=== PATIENT | female | born 1970 | race Caucasian/White ===

== ENCOUNTER → 2016-09-09 | Outpatient (CLI) | payer OTHER ==
--- NOTE | 2016-09-09 08:46 | MM ---
Reason for exam: additional evaluation requested from abnormal screening. Last mammogram was performed 1 month ago. Physical Findings: Nurse did not find any significant physical abnormalities on exam. MG Work Up Mamm w CAD LT Spot compression CC, spot compression MLO, and ML view(s) were taken of the left breast. Prior study comparison: August 06, 2016, bilateral MG screening mammo w CAD. There are scattered fibroglandular densities. Asymmetric breast tissue persists inferior left breast. No significant new findings when compared with previous films. These results were verbally communicated with the patient and result sheet given to the patient on 09/09/16. ASSESSMENT: Incomplete: need additional imaging evaluation, BI-RAD 0 RECOMMENDATION: Ultrasound of the left breast.
--- NOTE | 2016-09-09 08:48 | USB ---
Reason for exam: additional evaluation requested from abnormal screening. US Breast Workup Limited LT Left breast ultrasound demonstrates a 0.9 x 0.4 x 0.8cm oval, cystic lesion at 4 o'clock. These results were verbally communicated with the patient and result sheet given to the patient on 09/09/16. ASSESSMENT: Probably benign, BI-RAD 3 RECOMMENDATION: Ultrasound of the left breast in 6 months.
== END | disposition home or self-care (01) ==
LOC: RADMAMWWP 07:38
PROVIDERS: ATTEND Family Medicine
DX: R92.2 Inconclusive mammogram (principal)
CPT/HCPCS: 77051; 76642; G0206

== ENCOUNTER → 2017-10-14 | Outpatient (CLI) | payer OTHER ==
--- NOTE | 2017-10-14 11:09 | MM ---
Reason for exam: additional evaluation requested from prior study. Last mammogram was performed 1 year and 1 month ago. Physical Findings: Nurse Summary: 1cm nodule in the left breast at 1 o'clock (nurse veronika). MG Diagnostic Mammo w CAD DIANA Bilateral CC and MLO view(s) were taken. Prior study comparison: September 09, 2016, left breast MG work up mamm w CAD LT. August 06, 2016, bilateral MG screening mammo w CAD. The breast tissue is heterogeneously dense. This may lower the sensitivity of mammography. No suspicious abnormality in the right breast. The previously seen focal asymmetry of the lower central left breast at middle depth is unchanged from the prior of 08/06/16. These results were verbally communicated with the patient and result sheet given to the patient on 10/14/17. ASSESSMENT: Probably benign, BI-RAD 3 RECOMMENDATION: Follow-up diagnostic mammogram of both breasts in 1 year.
--- NOTE | 2017-10-14 11:11 | USB ---
Reason for exam: additional evaluation requested from prior study. US Breast LT Left breast ultrasound includes all four quadrants, the retroareolar region and axilla. Finding demonstrates a 8 x 4 x 8mm cystic lesion with debris at 4 o'clock unchanged from the prior of 09/09/16 and a 24 x 11 x 17mm possible lymph node at the axilla tail this can be reassessed on the recommended follow up. These results were verbally communicated with the patient and result sheet given to the patient on 10/14/17. ASSESSMENT: Probably benign, BI-RAD 3 RECOMMENDATION: Ultrasound of the left breast in 1 year.
== END | disposition home or self-care (01) ==
LOC: RADMAMWWP 09:47
PROVIDERS: ATTEND Family Medicine
DX: R92.8 Other abnormal and inconclusive findings on diagnostic imaging of breast (principal)
CPT/HCPCS: 77066

== ENCOUNTER → 2019-06-01 | Outpatient (CLI) | payer OTHER ==
--- NOTE | 2019-06-02 09:05 | MM ---
Reason for exam: additional evaluation requested from prior study. Last mammogram was performed 1 year and 8 months ago. Physical Findings: Nurse did not find any significant physical abnormalities on exam. MG Diagnostic Mammo w CAD DIANA Bilateral CC and MLO view(s) were taken. ML, spot compression CC, and spot compression MLO view(s) were taken of the right breast. Prior study comparison: October 14, 2017, bilateral MG diagnostic mammo w CAD DIANA. September 09, 2016, left breast MG work up mamm w CAD LT. The breast tissue is heterogeneously dense. This may lower the sensitivity of mammography. Asymmetric breast tissue upper ouer quadrant right breast. This finding is changed when compared with previous exams. These results were verbally communicated with the patient and result sheet given to the patient on 06/01/19. ASSESSMENT: Incomplete: need additional imaging evaluation, BI-RAD 0 RECOMMENDATION: Ultrasound of the right breast.
--- NOTE | 2019-06-02 09:09 | USB ---
Reason for exam: additional evaluation requested from prior study. US Breast Limited BILAT Right limited breast ultrasound including focal area of concern, retroareolar and axilla demonstrates a 5 x 3 x 5mm oval, hypoechoic lesion at 10 o'clock, a 7mm and 9mm oval lymph node at the axilla tail. Left complete breast ultrasound includes all four quadrants, the retroareolar region and axilla. Finding demonstrates a 4 x 2 x 4mm oval, cystic lesion at 2 o'clock, a 8 x 6 x 8mm oval, hypoechoic lesion at 4 o'clock for which a biopsy is recommended, a 7mm, 8mm and 8mm lymph nodes at the axilla tail. These results were verbally communicated with the patient and result sheet given to the patient on 06/02/19. ASSESSMENT: Probably benign, BI-RAD 3 RECOMMENDATION: Ultrasound core biopsy of the left breast. Called Dr. Ruiz with mammographic findings and has scheduled an appointment for the patient for 07/28/19 at 10:[address] Montelongo. Biopsy scheduled for 06/27/19 at 12:20. PRELIMINARY REPORT CALLED AND FAXED TO DR. MONTELONGO ON 06/02/19. Ultrasound of the right breast in 6 months.
== END | disposition home or self-care (01) ==
LOC: RADMAMWWP 13:26
PROVIDERS: ATTEND Family Medicine
DX: R92.8 Other abnormal and inconclusive findings on diagnostic imaging of breast (principal)
CPT/HCPCS: 77066

== ENCOUNTER → 2019-06-27 | Day surgery (SDC) | payer OTHER ==
[2019-06-27 11:52] VITALS: RESP 16; BMI 37.8
[2019-06-27 13:19] VITALS: TEMP 98.5
[2019-06-27 13:26] VITALS: BP 161/94; PULSE 67
--- NOTE | 2019-06-27 15:43 | USB ---
EXAMINATION TYPE: US biopsy breast VAD LT, Postprocedure diagnostic mammo LT wo CAD DATE OF EXAM: 06/27/2019 CLINICAL HISTORY: 49-year-old female R92.8 ABNORMAL MAMMOGRAM. TECHNIQUE: Ultrasound guided core biopsy of the left breast. COMPARISON: 06/01/2019 FINDINGS: The procedure of ultrasound guided core biopsy was explained to the patient. Benefits, alternatives, and risks were discussed. An informed consent was then obtained. The patient was placed in supine positioning for imaging and for the procedure. The overlying skin was prepped and draped in usual sterile fashion. Lidocaine was used as anesthetic into the skin and subcutaneous tissue up to area of concern in the 4:00 position left breast. Under ultrasound guidance, a 13-gauge vacuum-assisted mammotome Elite biopsy gun device was used to obtain 6 core samples. Following this, a ribbon clip was left in lesion. The patient tolerated the procedure well without any immediate complication. The patient was kept in the radiology department for short stay after the procedure and then discharged home in stable condition. Postprocedure mammogram shows the biopsy clip at the 6:00 position which appears to correspond to a nodular asymmetry on the left MLO view of 06/01/2019. IMPRESSION: Successful, uncomplicated ultrasound guided core biopsy of circumscribed hypoechoic lesion in the 6:00 left breast. Full pathology results to follow. Pathology Results: Benign LEFT BREAST AT 4:00 POSITION, NEEDLE CORE BIOPSIES: Fibroadenoma. Recommendation Follow up ultrasound of the left breast in 6 months. HALLIE
== END | disposition home or self-care (01) ==
LOC: RADUSWWP 11:21
PROVIDERS: ATTEND Surgery
DX: D24.2 Benign neoplasm of left breast (principal)
CPT/HCPCS: 88305; 77065; 19083; A4648; J2001

== ENCOUNTER → 2019-10-05 | Outpatient (CLI) | payer OTHER ==
[2019-10-05 13:33] VITALS: BP 87/60; PULSE 104; TEMP 98.1; BMI 38.8
--- NOTE | 2019-10-05 14:28 | P.HPBAR ---
Bariatric H&P - History & Physicial H&P Date: 10/05/19 History & Physicial: Visit/CC: bariatric consultation Patient initial contact: Initial weight: 101.106 kg Initial weight in pounds: 222.90 Height: 5 ft 3.5 in Initial BMI: 38.8 Last weight: Current weight: 101.106 kg Current weight in pounds: 222.90 Current BMI: 38.8 [place] body weight (based on NIH guidelines): 53.297 kg Excess body weight loss: 0.0% The patient is a 49 year-old F who presents for Bariatric Assessment. She is on Xarelto. She has history blood clot in her legs. She sees Dr. Quinn who states she has to be on blood thinners for Factor V. 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 She is looking into the gastric bypass. She reports dizziness yesterday. She was on Keto diet 1 year ago and lost 40 pounds. She has history of hypotension. She has regained all of her weight back. She has history strokes systolic of 220s. She takes hypertension. She is type II diabetic. She was blood sugars 400s. Her Hgb A1c 8.6. No problems with diarrhea. No family history of stomach or esophageal cancer. Osteoarthritis of the back, hips, knees, and ankles reviewed. PLAN: 1. She was given chips and water with blood pressure improved. 2. She does not see a heart doctor. 3. [facility] started and reviewed. 4. Past Medical History Past Medical History: Diabetes Mellitus, GERD/Reflux, Hypertension Additional Past Medical History / Comment(s): blood clot secondary to spinal fusion right leg dx 2016, Factor V dx 2016. Type 2 DM. History of Any Multi-Drug Resistant Organisms: None Reported Past Surgical History: Section Additional Past Surgical History / Comment(s): spinal fusion 2016. , x4, Past Anesthesia/Blood Transfusion Reactions: No Reported Reaction Additional Past Anesthesia/Blood Transfusion Reaction / Comm: Pt. states had prior tooth pulled with local lidocaine anesthetic which did not numb prior to procedure (pt states she ended up in ICU with 2 plasma transfusions after having this tooth pulled). Smoking Status: Never smoker Surgical - Exam Vital Signs Temp Pulse BP 98.1 F 104 H 87/60 10/05/19 13:26 10/05/19 13:26 10/05/19 13:26 Bariatric Checklist Checklist: Plan: Checklist: EGD: 1. Hiatal hernia: 2. H. Pylori: HgbA1c: Vitamin D: Smoking: Never smoker Primary care physician referral: kevin drake Psychiatry clearance: Cardiology clearance: Sleep study: Diet journal: VTE risk score: VTE risk level: Rehab needs at discharge:
[2019-10-05 15:35] LABS: HCT 41.6 % (34.0-46.0); HGB 13.5 gm/dL (11.4-16.0); MCH 29.5 pg (25.0-35.0); MCHC 32.5 g/dL (31.0-37.0); MCV 90.6 fL (80.0-100.0); Mean Platelet Volume 7.7; Platelet Count 248 k/uL (150-450); RBC 4.59 m/uL (3.80-5.40); RDW 12.5 % (11.5-15.5); WBC 7.7 k/uL (3.8-10.6)
[2019-10-05 15:42] LABS: INR 1.2 (<1.2); Partial Thromboplastin Time 29.6 sec (22.0-30.0); Prothrombin Time 11.7 sec (9.0-12.0)
[2019-10-06 01:23] LABS: Hemoglobin A1C 7.4 % (4.0-6.0)
[2019-10-06 01:30] LABS: % Iron Saturation 29.19 (12.00-45.00); African American GFR (CKD) 62.3 (60.0-200.0); Albumin 4.4 g/dL (3.80-4.90); Albumin/Globulin Ratio 1.83 (1.60-3.17); Anion Gap 9.3 mmol/L (4.00-12.00); BUN/Creat Ratio 26.67 Ratio (12.00-20.00); Calcium 9.4 mg/dL (8.7-10.3); Carbon Dioxide 26.7 mmol/L (21.6-31.8); Chol/HDL Ratio 4.97; Globulin 2.4 g/dL (1.6-3.3); Non-African American GFR(CKD) 53.8 (60.0-200.0); Phosphorus 3.1 mg/dL (2.4-5.1); Total Bilirubin 0.4 mg/dL (0.3-1.2); Total Protein 6.8 g/dL (6.2-8.2)
[2019-10-06 02:07] LABS: Folate, Serum 13.6 ng/mL
[2019-10-06 14:02] LABS: Zinc, Serum 68 ug/dL (60-130)
[2019-10-07 07:09] LABS: Vitamin A 70 ug/dL (38-106)
[2019-10-07 12:51] LABS: Vit B1(Thiamine) 60 ug/L (38-122)
[2019-10-07 22:29] LABS: Selenium 109 mcg/L (63-160)
== END | disposition home or self-care (01) ==
LOC: BARWHC3 12:53
PROVIDERS: ATTEND Surgery Plastic and Reconstructive Surgery
DX: R42 Dizziness and giddiness (principal); E11.9 Type 2 diabetes mellitus without complications; M16.0 Bilateral primary osteoarthritis of hip; M17.0 Bilateral primary osteoarthritis of knee; M19.072 Primary osteoarthritis, left ankle and foot; M19.071 Primary osteoarthritis, right ankle and foot; I10 Essential (primary) hypertension; Z86.2 Personal history of diseases of the blood and blood-forming organs and certain disorders involving the immune mechanism; Z87.09 Personal history of other diseases of the respiratory system; Z86.73 Personal history of transient ischemic attack (TIA), and cerebral infarction without residual deficits
CPT/HCPCS: 84255; 84134; 84425; 80061; 80053; 82607; 82525; 82746; 83540; 83550; 83735; 84100; 84443; 84590; 84630; 85027; 85610; 85730; 82306; 83970; 83036; 93005; 36415; G0463; 99211

== ENCOUNTER 2019-10-31 06:57 | Day surgery (SDC) | payer OTHER ==
[2019-10-27 15:15] VITALS: BMI 38.7
--- NOTE | 2019-10-30 20:01 | P.GSHP ---
History of Present Illness H&P Date: 10/31/19 CHIEF COMPLAINT: GERD HISTORY OF PRESENT ILLNESS: The patient is a 49-year-old female who presents reports gastroesophageal reflux disease. Upper endoscopy was offered for further evaluation and management. PAST MEDICAL HISTORY: Please see list. PAST SURGICAL HISTORY: Please see list. MEDICATIONS: Please see list. ALLERGIES: Please see list. SOCIAL HISTORY: No illicit drug use FAMILY HISTORY: No reports of Crohn disease or ulcerative colitis. REVIEW OF ORGAN SYSTEMS: CONSTITUTIONAL: No reports of fevers or chills. GI: Denies any blood in stools or constipation. PHYSICAL EXAM: VITAL SIGNS: Stable GENERAL: Well-developed and pleasant in no acute distress. HEENT: No scleral icterus. Extraocular movements grossly intact. Moist buccal mucosa. NECK: Supple without lymphadenopathy. CHEST: Unlabored respirations. Equal bilateral excursions. CARDIOVASCULAR: Regular rate and rhythm. Distal 2+ pulses. ABDOMEN: Soft, nondistended. MUSCULOSKELETAL: No clubbing, cyanosis, or edema. ASSESSMENT: 1. Gastroesophageal reflux disease PLAN: 1. Recommend proceeding with an upper endoscopy Past Medical History Past Medical History: CVA/TIA, Diabetes Mellitus, Deep Vein Thrombosis (DVT), GERD/Reflux, Hypertension Additional Past Medical History / Comment(s): blood clot secondary to spinal fusion right leg dx 2016, Factor V dx 2016. Type 2 DM. History of Any Multi-Drug Resistant Organisms: None Reported Past Surgical History: Section Additional Past Surgical History / Comment(s): spinal fusion 2016. , x4, Past Anesthesia/Blood Transfusion Reactions: No Reported Reaction Additional Past Anesthesia/Blood Transfusion Reaction / Comment(s): Pt. states h ad prior tooth pulled with local lidocaine anesthetic which did not numb prior to procedure (pt states she ended up in ICU with 2 plasma transfusions after having this tooth pulled). Smoking Status: Never smoker - Past Family History Mother Family Medical History: No Reported History Medications and Allergies Home Medications Medication Instructions Recorded Confirmed Type Biotin 10,000 mcg PO DAILY 06/10/19 10/27/19 History Lisinopril 40 mg PO DAILY 06/10/19 10/27/19 History Rivaroxaban [Xarelto] 20 mg PO DAILY 06/10/19 10/27/19 History Glimepiride [Amaryl] 4 mg PO BID 10/05/19 10/27/19 History metFORMIN HCL [Glucophage] 1,000 mg PO BID 10/05/19 10/27/19 History Cholecalciferol [Vitamin D3 (25 5,000 unit PO DAILY 10/27/19 10/27/19 History Mcg = 1000 Iu)] Allergies Allergy/AdvReac Type Severity Reaction Status Date / Time No Known Allergies Allergy Verified 10/27/19 14:43
[~2019-10-31 06:57] MED LIST: LACTATED RINGERS 1,000 ML IV SCH; LIDOCAINE 1% 20 ML VIAL (10MG/ML) FOR IV START INTRADERMA PRN
[2019-10-31 07:15] VITALS: TEMP 98
[2019-10-31] MEDS ORDERED: LACTATED RINGERS 1,000 ML IV ONE ×2 (07:22)
[2019-10-31 07:25] LABS: Glucose,Whole Blood 154 mg/dL (75-99)
[2019-10-31] MEDS ORDERED: LIDOCAINE 1% INJ 10MG/ML (20 ML MDV) ONE (07:30)
[2019-10-31] MEDS ORDERED: PROPOFOL 10 MG/ML 20 ML VIAL IV ONE (07:30)
--- NOTE | 2019-10-31 08:05 | P.PCN ---
Date of Procedure: 10/31/19 Description of Procedure: PREOPERATIVE DIAGNOSIS: Gastroesophageal reflux disease. Morbid obesity. POSTOPERATIVE DIAGNOSIS: Morbid obesity. Gastritis. Gastroesophageal reflux disease. Diaphragmatic hiatal hernia with erosive esophagitis Duodenitis OPERATION: Esophagogastroduodenoscopy with biopsies along antrum and duodenum SURGEON: Fransisca York MD ANESTHESIA: MAC. INDICATIONS: The patient is a 48-year-old female who presents with a history of reflux disease. Benefits and risks of the procedure were described. Informed consent was obtained. DESCRIPTION: The patient was brought into the endoscopy suite and laid in the left lateral decubitus position. An Olympus gastroscope was passed along the posterior oropharynx down to the distal esophagus where the squamocolumnar junction was encountered at 35 cm from the incisors. The stomach was entered and no bile reflux was found. Additional findings are listed below. Biopsies with cold forceps were obtained of the antrum. The first through third portion of the duodenum was examined and remarkable for duodenitis. Retroflexion of the scope confirmed Hill grade 3 lower esophageal valve. The squamocolumnar junction demonstrated LA grade C erosive esophagitis. The stomach was desufflated. The patient tolerated the procedure well. FINDINGS: Squamocolumnar junction 35 cm from the incisors. Diaphragmatic hiatus at 38 cm. Hiatal hernia, 3 cm Hill grade 3 lower esophageal valve. LA grade C erosive esophagitis. Active mild duodenitis. Chronic gastritis RECOMMENDATIONS: Upper endoscopy as needed. Plan - Discharge Summary Discharge Rx Participant: No New Discharge Prescriptions: No Action Rivaroxaban [Xarelto] 20 mg PO DAILY RX: Lisinopril 40 mg PO DAILY RX: Biotin 10,000 mcg PO DAILY RX: metFORMIN HCL [Glucophage] 1,000 mg PO BID RX: Glimepiride [Amaryl] 4 mg PO BID Cholecalciferol [Vitamin D3 (25 Mcg = 1000 Iu)] 5,000 unit PO DAILY Discharge Medication List RX: Biotin 10,000 mcg PO DAILY 06/10/19 [History] RX: Lisinopril 40 mg PO DAILY 06/10/19 [History] Rivaroxaban [Xarelto] 20 mg PO DAILY 06/10/19 [History] RX: Glimepiride [Amaryl] 4 mg PO BID 10/05/19 [History] RX: metFORMIN HCL [Glucophage] 1,000 mg PO BID 10/05/19 [History] Cholecalciferol [Vitamin D3 (25 Mcg = 1000 Iu)] 5,000 unit PO DAILY 10/27/19 [History] Follow [facility](s[facility]Ref[place] [facility] [place] Patient Instructions/Handouts: Gastritis (DC), Duodenitis (DC), Gastroesophageal Reflux Disease (DC), Hiatal Hernia (DC) Discharge Disposition: HOME SELF-CARE
[2019-10-31 08:13] VITALS: BP 126/86; PULSE 81; RESP 16
== END 2019-10-31 08:59 | disposition home or self-care (01) ==
LOC: ORWHC2ENDO 06:57
PROVIDERS: ATTEND Surgery Plastic and Reconstructive Surgery
DX: K22.10 Ulcer of esophagus without bleeding (principal); K44.9 Diaphragmatic hernia without obstruction or gangrene; K29.80 Duodenitis without bleeding; K29.50 Unspecified chronic gastritis without bleeding; K21.9 Gastro-esophageal reflux disease without esophagitis; E66.01 Morbid (severe) obesity due to excess calories; Z68.38 Body mass index [BMI] 38.0-38.9, adult; E11.9 Type 2 diabetes mellitus without complications; I10 Essential (primary) hypertension; D68.2 Hereditary deficiency of other clotting factors; Z86.73 Personal history of transient ischemic attack (TIA), and cerebral infarction without residual deficits; Z86.718 Personal history of other venous thrombosis and embolism; Z98.1 Arthrodesis status; Z79.01 Long term (current) use of anticoagulants; Z79.84 Long term (current) use of oral hypoglycemic drugs; Z79.899 Other long term (current) drug therapy
CPT/HCPCS: 81025; 88305; 43239; J2001; J2704

== ENCOUNTER → 2020-01-10 | Outpatient (CLI) | payer OTHER | END | disposition home or self-care (01) | LOC: LABWHC1 12:23 | PROVIDERS: ATTEND Surgery Plastic and Reconstructive Surgery | DX: U07.1 COVID-19 (principal) | CPT/HCPCS: 87635 ==

== ENCOUNTER 2020-01-12 08:00 | Day surgery (SDC) | payer OTHER ==
[2020-01-11 10:48] VITALS: BMI 38.4
[~2020-01-12 08:00] MED LIST changes: -LIDOCAINE 1% 20 ML VIAL (10MG/ML) FOR IV START INTRADERMA PRN
[2020-01-12] MEDS ORDERED: LIDOCAINE 1% (10MG/ML) FOR IV START INTRADERMA ONE (08:35)
[2020-01-12 08:40] LABS: Glucose,Whole Blood 149 mg/dL (75-99)
[2020-01-12 08:43] VITALS: TEMP 97.7
[2020-01-12] MEDS ORDERED: PROPOFOL 10 MG/ML 20 ML VIAL IV ONE (08:49)
--- NOTE | 2020-01-12 08:50 | P.GSHP ---
History of Present Illness H&P Date: 01/12/20 CHIEF COMPLAINT: Gastrointestinal bleed with anemia HISTORY OF PRESENT ILLNESS: The patient is a 49-year-old female who presents with gastrointestinal bleed and anemia Upper and lower endoscopy were offered for further evaluation and management. PAST MEDICAL HISTORY: Please see list. PAST SURGICAL HISTORY: Please see list. MEDICATIONS: Please see list. ALLERGIES: Please see list. SOCIAL HISTORY: No illicit drug use FAMILY HISTORY: No reports of Crohn disease or ulcerative colitis. REVIEW OF ORGAN SYSTEMS: CONSTITUTIONAL: No reports of fevers or chills. PHYSICAL EXAM: VITAL SIGNS: Stable GENERAL: Well-developed pleasant in no acute distress. HEENT: No scleral icterus. Extraocular movements grossly intact. Moist buccal mucosa. NECK: Supple without lymphadenopathy. CHEST: Unlabored respirations. Equal bilateral excursions. CARDIOVASCULAR: Regular rate and rhythm. Distal 2+ pulses. ABDOMEN: Soft, nondistended. MUSCULOSKELETAL: No clubbing, cyanosis, or edema. ASSESSMENT: 1. Gastrointestinal bleed 2. Anemia PLAN: 1. Recommend proceeding with an upper and lower endoscopy Past Medical History Past Medical History: CVA/TIA, Diabetes Mellitus, Deep Vein Thrombosis (DVT), GERD/Reflux, Hypertension Additional Past Medical History / Comment(s): blood clot secondary to spinal fusion right leg dx 2016, Factor V dx 2016. Type 2 DM. HAS SEEN BLOOD ON TISSUE AFTER BM History of Any Multi-Drug Resistant Organisms: None Reported Past Surgical History: Back Surgery, Section, Uterine Ablation Additional Past Surgical History / Comment(s): spinal fusion 2016. , x4, Past Anesthesia/Blood Transfusion Reactions: No Reported Reaction Additional Past Anesthesia/Blood Transfusion Reaction / Comment(s): Pt. states had prior tooth pulled with local lidocaine anesthetic which did not numb prior to procedure (pt states she ended up in ICU with 2 plasma transfusions after having this tooth pulled). Smoking Status: Never smoker - Past Family History Mother Family Medical History: No Reported History Medications and Allergies Home Medications Medication Instructions Recorded Confirmed Type Biotin 10,000 mcg PO DAILY 06/10/19 01/12/20 History Lisinopril 40 mg PO DAILY 06/10/19 01/12/20 History Rivaroxaban [Xarelto] 20 mg PO DAILY 06/10/19 01/12/20 History Glimepiride [Amaryl] 4 mg PO BID 10/05/19 01/12/20 History metFORMIN HCL [Glucophage] 1,000 mg PO BID 10/05/19 01/12/20 History Cholecalciferol [Vitamin D3 (25 5,000 unit PO DAILY 10/27/19 01/12/20 History Mcg = 1000 Iu)] Allergies Allergy/AdvReac Type Severity Reaction Status Date / Time No Known Allergies Allergy Verified 01/12/20 08:16 Surgical - Exam Vital Signs Temp Pulse Resp BP Pulse Ox 97.7 F 101 H 16 164/83 96 01/12/20 08:33 01/12/20 08:33 01/12/20 08:33 01/12/20 08:33 01/12/20 08:33 Results - Labs Abnormal Lab Results - Last 24 Hours (Table) 01/12/20 Range/Units 08:37 POC Glucose (mg/dL) 149 H (75-99) mg/dL
--- NOTE | 2020-01-12 09:14 | P.PCN ---
Date of Procedure: 01/12/20 Description of Procedure: PREOPERATIVE DIAGNOSIS: Gastrointestinal bleed POSTOPERATIVE DIAGNOSIS: History of gastrointestinal bleeding Gastritis OPERATION: Esophagogastroduodenoscopy with biopsies along antrum. SURGEON: Fransisca York MD ANESTHESIA: MAC. INDICATIONS: The patient is a 49-year-old female who presents with a history of gastrointestinal bleeding. Benefits and risks of the procedure were described. Informed consent was obtained. DESCRIPTION: The patient was brought into the endoscopy suite and laid in the left lateral decubitus position. An Olympus gastroscope was passed along the posterior oropharynx down to the distal esophagus where the squamocolumnar junction was encountered at 39 cm from the incisors. The stomach was entered and no bile reflux was found. Additional findings are listed below. Biopsies with cold forceps were obtained of the antrum. The first through third portion of the duodenum was examined and unremarkable. Retroflexion of the scope confirmed Hill grade 2 lower esophageal valve. The squamocolumnar junction demonstrated LA grade B erosive esophagitis. The stomach was desufflated. The patient tolerated the procedure well. FINDINGS: Squamocolumnar junction 39 cm from the incisors. Diaphragmatic hiatus at 40 cm. Hiatal hernia, 1 cm Hill grade 2 lower esophageal valve. LA grade B erosive esophagitis. No active duodenitis. Chronic gastritis without recent bleed RECOMMENDATIONS: Upper endoscopy as needed.
[2020-01-12 10:03] VITALS: BP 137/78; PULSE 78; RESP 18
--- NOTE | 2020-01-12 10:13 | P.PCN ---
Date of Procedure: 01/12/20 Description of Procedure: PREOPERATIVE DIAGNOSIS: History of gastrointestinal bleeding POSTOPERATIVE DIAGNOSIS: History of gastrointestinal bleeding Diverticulosis, scattered Complicated internal and external hemorrhoids, grade 4 OPERATION: Colonoscopy to the ileocecal valve and appendiceal orifice. SURGEON: Fransisca York MD. ANESTHESIA: MAC. INDICATIONS: The patient is a 49-year-old female who presents with history of gastrointestinal bleeding. Benefits and risks were described and informed consent was obtained. DESCRIPTION OF PROCEDURE: The patient had undergone Suprep. She had been brought into the operating room and laid in the left lateral decubitus position. After adequate intravenous sedation, the rectum was examined with 2% lidocaine jelly. External hemorrhoids were encountered. The rectal tone was within normal limits. No lesions were palpated in the rectal vault. An Olympus colonoscope was advanced until the ileocecal valve and appendiceal orifice were clearly viewed. The prep was excellent with clear visualization of the mucosal folds. The scope was removed with visualization of each mucosal fold. Scattered diverticulosis was encountered. No colonic polyps were found. No evidence of focal colitis was found. Retroflexion of the scope demonstrated grade 4 internal hemorrhoids without active bleeding or inflammation. The colon was desufflated. The patient had tolerated the procedure well. Withdrawal time was over 6 minutes. FINDINGS: Aronchick preparation quality scale 1 (1-5) Internal hemorrhoids, grade 4 External prolapsed hemorrhoids, grade 4 No arteriovenous malformations. No adenomatous polyps. No focal colitis. RECOMMENDATIONS: Lower endoscopy in 5 years, 2024 Plan - Discharge Summary Discharge Rx Participant: No New Discharge Prescriptions: No Action Rivaroxaban [Xarelto] 20 mg PO DAILY Lisinopril 40 mg PO DAILY Biotin 10,000 mcg PO DAILY metFORMIN HCL [Glucophage] 1,000 mg PO BID Glimepiride [Amaryl] 4 mg PO BID Cholecalciferol [Vitamin D3 (25 Mcg = 1000 Iu)] 5,000 unit PO DAILY Discharge Medication List Biotin 10,000 mcg PO DAILY 06/10/19 [History] Lisinopril 40 mg PO DAILY 06/10/19 [History] Rivaroxaban [Xarelto] 20 mg PO DAILY 06/10/19 [History] Glimepiride [Amaryl] 4 mg PO BID 10/05/19 [History] metFORMIN HCL [Glucophage] 1,000 mg PO BID 10/05/19 [History] Cholecalciferol [Vitamin D3 (25 Mcg = 1000 Iu)] 5,000 unit PO DAILY 10/27/19 [History]
== END 2020-01-12 10:03 | disposition home or self-care (01) ==
LOC: ORWHC2ENDO 08:00
PROVIDERS: ATTEND Surgery Plastic and Reconstructive Surgery
DX: K29.50 Unspecified chronic gastritis without bleeding (principal); K44.9 Diaphragmatic hernia without obstruction or gangrene; K64.4 Residual hemorrhoidal skin tags; K64.3 Fourth degree hemorrhoids; D64.9 Anemia, unspecified; K57.31 Diverticulosis of large intestine without perforation or abscess with bleeding; K21.0 Gastro-esophageal reflux disease with esophagitis; K22.10 Ulcer of esophagus without bleeding; I10 Essential (primary) hypertension; E11.9 Type 2 diabetes mellitus without complications; Z98.1 Arthrodesis status; Z86.73 Personal history of transient ischemic attack (TIA), and cerebral infarction without residual deficits; Z86.718 Personal history of other venous thrombosis and embolism; Z98.890 Other specified postprocedural states; Z79.01 Long term (current) use of anticoagulants; Z79.84 Long term (current) use of oral hypoglycemic drugs; Z79.899 Other long term (current) drug therapy
CPT/HCPCS: 81025; 88305; 45378; 43239; J2704

== ENCOUNTER → 2020-07-04 | Outpatient (CLI) | payer OTHER ==
[2020-07-04 10:24] LABS: Basophils % (A) 1 %; Eosinophils # (A) 0.1 k/uL (0-0.7); Eosinophils % (A) 2 %; HCT 39.9 % (34.0-46.0); HGB 13.1 gm/dL (11.4-16.0); Lymphocytes # (A) 1.5 k/uL (1.0-4.8); Lymphocytes % (A) 27 %; MCH 30.4 pg (25.0-35.0); MCHC 32.7 g/dL (31.0-37.0); MCV 92.8 fL (80.0-100.0); Mean Platelet Volume 7.5; Monocytes # (A) 0.3 k/uL (0-1.0); Monocytes % (A) 5 %; Neutrophils # (A) 3.5 k/uL (1.3-7.7); Neutrophils % (A) 65 %; Platelet Count 228 k/uL (150-450); RDW 12.3 % (11.5-15.5); WBC 5.4 k/uL (3.8-10.6)
[2020-07-04 15:32] LABS: African American GFR (CKD) 77.2 (60.0-200.0); Albumin 3.9 g/dL (3.80-4.90); Albumin/Globulin Ratio 1.56 (1.60-3.17); Anion Gap 6.6 mmol/L (4.00-12.00); Calcium 9.2 mg/dL (8.7-10.3); Carbon Dioxide 30.4 mmol/L (21.6-31.8); Chol/HDL Ratio 6.41; Globulin 2.5 g/dL (1.6-3.3); LDL Cholesterol,Calculated 138.8 mg/dL (0.0-131.0); Non-African American GFR(CKD) 66.6 (60.0-200.0); Total Bilirubin 0.4 mg/dL (0.2-1.2); Total Protein 6.4 g/dL (6.2-8.2); VLDL Calculation 34.2 mg/dL (5.00-40.00)
[2020-07-04 15:39] LABS: T4, Free (Free Thyroxine) 1.3 ng/dL (0.80-1.80)
== END | disposition home or self-care (01) ==
LOC: LABWHC1 09:24
PROVIDERS: ATTEND Nurse Practitioner Acute Care
DX: E55.9 Vitamin D deficiency, unspecified (principal); G45.9 Transient cerebral ischemic attack, unspecified; Z86.73 Personal history of transient ischemic attack (TIA), and cerebral infarction without residual deficits
CPT/HCPCS: 36415; 80053; 80061; 82306; 82607; 84207; 84439; 84443; 84481; 85025

== ENCOUNTER → 2020-12-04 | Outpatient (CLI) | payer OTHER ==
[2020-12-04 22:47] LABS: Total Protein,CSF 79 mg/dL (12-60)
[2020-12-05 00:17] LABS: Appearance,CSF Clear; CSF Tube Number 4; Nucleated Cells, CSF 0 u/L (0-5); Red Blood Cell,CSF 1 u/L (0-10)
== END | disposition home or self-care (01) ==
LOC: LABWHC1 12:05
PROVIDERS: ATTEND Nurse Practitioner Acute Care
DX: G35 Multiple sclerosis (principal); R90.82 White matter disease, unspecified
CPT/HCPCS: 36415; 82040; 82042; 82784; 83916; 84157; 87801; 89050

== ENCOUNTER → 2020-12-06 | Outpatient (CLI) | payer OTHER ==
--- NOTE | 2020-12-06 09:55 | ECHOF ---
Referral Reason:I10 HTN MEASUREMENTS -------- HEIGHT: 160.0 cm WEIGHT: 99.3 kg BP: RVIDd: 2.7 cm (< 3.3) IVSd: 1.0 cm (0.6 - 1.1) LVIDd: 3.9 cm (3.9 - 5.3) LVPWd: 1.3 cm (0.6 - 1.1) IVSs: 1.8 cm LVIDs: 2.1 cm LVPWs: 2.1 cm LAESV Index (A-L): 18.19 ml/m Ao Diam: 3.1 cm (2.0 - 3.7) AV Cusp: 2.1 cm (1.5 - 2.6) LA Diam: 3.5 cm (2.7 - 3.8) MV EXCURSION: 19.089 mm (> 18.000) MV EF SLOPE: 128 mm/s (70 - 150) EPSS: 0.0 cm MV E Raymond: 0.81 m/s MV DecT: 159 ms MV A Raymond: 1.06 m/s MV E/A Ratio: 0.76 RAP: 5.00 mmHg RVSP: 25.95 mmHg FINDINGS -------- This was a technically good study. The left ventricular size is normal. There is mild concentric left ventricular hypertrophy. Overa ll left ventricular systolic function is normal with, an EF between 55 - 60 %. The diastolic fillin g pattern is normal for the age of the patient 12.25. The right ventricle is normal in size. The left atrial size is normal. Normal LA size by volume 22+/-6 ml/m2. The right atrial size is normal. Interatrial and interventricular septum intact. The aortic valve is trileaflet and appears structurally normal. The mitral valve is normal. There is trace mitral regurgitation. The tricuspid valve appears structurally normal. No regurgitation noted Right ventricular systoli c pressure is normal at < 35 mmHg. There is no pulmonic regurgitation present. The aortic root size is normal. Normal inferior vena cava with normal inspiratory collapse consistent with estimated right atrial pre ssure of 5 mmHg. There is no pericardial effusion. CONCLUSIONS -------- 1. The left ventricular size is normal. 2. There is mild concentric left ventricular hypertrophy. 3. Overall left ventricular systolic function is normal with, an EF between 55 - 60 %. 4. The diastolic filling pattern is normal for the age of the patient 12.25 5. There is trace mitral regurgitation. 6. No regurgitation noted 7. There is no pericardial effusion. ACTIVITIES DIRECTOR: Maggie Covington RDCS
== END | disposition home or self-care (01) ==
LOC: RADECHMAIN 08:20
PROVIDERS: ATTEND Family Medicine
DX: I34.0 Nonrheumatic mitral (valve) insufficiency (principal)
CPT/HCPCS: 93306

== ENCOUNTER → 2020-12-11 | Outpatient (CLI) | payer OTHER ==
--- NOTE | 2020-12-12 11:16 | USB ---
Reason for exam: follow-up at short interval from prior study. History: Benign US biopsy breast VAD LT of the left breast, June 27, 2019. 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 US Breast Limited BILAT Right limited breast ultrasound including focal area of concern, retroareolar and axilla demonstrates no cystic or solid lesion seen. Left limited breast ultrasound including focal area of concern, retroareolar and axilla demonstrates a 0.7 x 0.4 x 0.7cm oval, hypoechoic lesion at 4 o'clock, no increase in size. These results were verbally communicated with the patient and result sheet given to the patient on 12/11/20. ASSESSMENT: Benign, BI-RAD 2 RECOMMENDATION: Routine screening mammogram of both breasts in 1 year.
--- NOTE | 2020-12-12 11:17 | MM ---
Reason for exam: additional evaluation requested from prior study. Last mammogram was performed 1 year and 6 months ago. History: Benign US biopsy breast VAD LT of the left breast, June 27, 2019. MG 3D Diag Mammo W/Cad DIANA Bilateral CC and MLO view(s) were taken. Prior study comparison: June 27, 2019, left breast MG diagnostic mammo LT wo CAD. June 01, 2019, bilateral MG diagnostic mammo w CAD DIANA. Previous mammotome biopsy in the left breast. No significant new findings when compared with previous films. These results were verbally communicated with the patient and result sheet given to the patient on 12/11/20. ASSESSMENT: Benign, BI-RAD 2 RECOMMENDATION: Routine screening mammogram of both breasts in 1 year.
== END | disposition home or self-care (01) ==
LOC: RADUSWWP 14:16
PROVIDERS: ATTEND Surgery
DX: R92.8 Other abnormal and inconclusive findings on diagnostic imaging of breast (principal)
CPT/HCPCS: 77066; 76642; G0279; 77062

== ENCOUNTER → 2022-08-25 | Outpatient (CLI) | payer OTHER ==
[2022-08-25 19:14] LABS: African American GFR (CKD) 76.1 (60.0-200.0); Albumin 3.7 g/dL (3.8-4.9); Albumin/Globulin Ratio 1.54 (1.60-3.17); Anion Gap 9.7 mmol/L (10.00-18.00); BUN/Creat Ratio 19.9 Ratio (12.00-20.00); Blood Urea Nitrogen 19.9 mg/dL (9.0-27.0); Calcium 9.2 mg/dL (8.7-10.3); Carbon Dioxide 26.3 mmol/L (20.0-27.5); Globulin 2.4 g/dL (1.6-3.3); Non-African American GFR(CKD) 65.6 (60.0-200.0); Potassium 4.2 mmol/L (3.5-5.5); Total Bilirubin 0.4 mg/dL (0.30-1.20); Total Protein 6.1 g/dL (6.2-8.2)
== END | disposition home or self-care (01) ==
LOC: LABWHC1 13:00
PROVIDERS: ATTEND Nurse Practitioner Acute Care
DX: E55.9 Vitamin D deficiency, unspecified (principal); G35 Multiple sclerosis; G45.9 Transient cerebral ischemic attack, unspecified; R41.3 Other amnesia
CPT/HCPCS: 36415; 80053; 82306

== ENCOUNTER → 2022-11-24 | Outpatient (CLI) | payer OTHER | END | disposition home or self-care (01) | LOC: LABWHC1 09:31 | PROVIDERS: ATTEND Nurse Practitioner Acute Care | DX: N18.9 Chronic kidney disease, unspecified (principal) | CPT/HCPCS: 36415; 82565; 84520 ==

== ENCOUNTER → 2023-02-14 | Outpatient (CLI) | payer OTHER ==
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
== END | disposition home or self-care (01) ==
LOC: RADCTMAIN 07:54
PROVIDERS: ATTEND Orthopaedic Surgery
DX: M50.321 Other cervical disc degeneration at C4-C5 level (principal); M43.22 Fusion of spine, cervical region; Z98.1 Arthrodesis status
CPT/HCPCS: 72125

== ENCOUNTER → 2023-03-23 | Outpatient (CLI) | payer OTHER ==
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
== END | disposition home or self-care (01) ==
LOC: RADMRIMAIN 21:00
PROVIDERS: ATTEND Orthopaedic Surgery
DX: M25.78 Osteophyte, vertebrae (principal); M47.22 Other spondylosis with radiculopathy, cervical region; M48.02 Spinal stenosis, cervical region; M50.122 Cervical disc disorder at C5-C6 level with radiculopathy
CPT/HCPCS: 72141

== ENCOUNTER → 2023-06-17 | Outpatient (CLI) | payer OTHER | END | disposition home or self-care (01) | LOC: LABPAT 11:11 | PROVIDERS: ATTEND Orthopaedic Surgery | DX: Z01.812 Encounter for preprocedural laboratory examination (principal); Z22.322 Carrier or suspected carrier of Methicillin resistant Staphylococcus aureus; M50.20 Other cervical disc displacement, unspecified cervical region | CPT/HCPCS: 36415; 86850; 86900; 86901; 87070 ==

== ENCOUNTER 2023-06-23 05:38 | Inpatient (IN) | payer OTHER ==
[2023-06-16 13:24] VITALS: BMI 40.0
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
[~2023-06-23 05:38] MED LIST changes: +ACETAMINOPHEN TAB 500 MG TAB PO PRN; +GABAPENTIN 300 MG CAP PO PRN; -LACTATED RINGERS 1,000 ML IV SCH; +ONDANSETRON 4 MG/2 ML VIAL IVP PRN; +TRANEXAMIC 1,000 MG/100ML-NACL 1,000 MG in SALINE 1 100ML.BAG IVPB PRN
[2023-06-23] MEDS ORDERED: DEXAMETHASONE SOD PHOSPHATE 4 MG/ML 1 ML VIAL IV ONE (05:58)
[2023-06-23] MEDS ORDERED: LIDOCAINE 1% (10MG/ML) FOR IV START INTRADERMA PRN (05:58)
[2023-06-23] MEDS ORDERED: ONDANSETRON 4 MG/2 ML VIAL IVP ONE (05:58)
[2023-06-23] MEDS: LACTATED RINGERS 1,000 ML IV SCH ×2 (06:27→17:40)
[2023-06-23] MEDS ORDERED: MIDAZOLAM 2 MG/2 ML VIAL IV PRN (07:00)
[2023-06-23] MEDS ORDERED: HYDROmorphone 0.5 MG/0.5 ML SYRINGE IVP PRN (07:00)
[2023-06-23 07:05] LABS: Glucose,Whole Blood 227 mg/dL (70-110)
[2023-06-23] MEDS ORDERED: INSULIN ASPART (NovoLOG) 100 UNIT/ML VIAL SQ ONE (07:17)
[2023-06-23] MEDS ORDERED: SUGAMMADEX SODIUM 200 MG/2 ML SDV IV ONE (07:25)
[2023-06-23] MEDS ORDERED: fentaNYL (PF) 50 MCG/ML 2 ML AMP ONE (07:25)
[2023-06-23] MEDS ORDERED: SUCCINYLCHOLINE CHLORIDE 200 MG/10 ML VIAL IV ONE (07:25)
[2023-06-23] MEDS ORDERED: ROCURONIUM 10 MG/ML (5 ML VIAL) IV ONE (07:25)
[2023-06-23] MEDS ORDERED: PROPOFOL 10 MG/ML 20 ML VIAL IV ONE (07:25)
[2023-06-23] MEDS ORDERED: PHENYLEPHRINE-0.9% NACL SYG 1,000 MCG/10 ML SYRINGE ONE (07:25)
[2023-06-23] MEDS ORDERED: KETAMINE HCL IN 0.9 % NACL 50 MG/5 ML SYRINGE ONE (07:25)
[2023-06-23] MEDS ORDERED: LIDOCAINE 1% INJ 10MG/ML (20 ML MDV) ONE (07:25)
[2023-06-23] MEDS ORDERED: MIDAZOLAM 2 MG/2 ML VIAL ONE (07:25)
[2023-06-23] MEDS ORDERED: THROMBIN (BOVINE) 5,000 UNIT VIAL TOPICAL ONE (08:25)
[2023-06-23] MEDS ORDERED: GELATIN SPONGE,ABSORB (LARGE) 1 EACH SPONGE TOPICAL ONE (08:25)
[2023-06-23] MEDS ORDERED: VANCOMYCIN 1,000 MG VIAL MISCELLANE ONE (09:06)
--- NOTE | 2023-06-23 09:27 | XR ---
Intraoperative/procedural fluoroscopic services were provided for cervical fusion. Total fluoroscopy time is 26 seconds with a total of 7 submitted images to PACS. Total DAP 1.8809 Gycm2. Please see th e operative note for further details.
[2023-06-23] MEDS ORDERED: HYDROcodone/APAP 5-325MG 1 EACH TAB PO PRN (10:10)
[2023-06-23] MEDS ORDERED: MAGNESIUM HYDROXIDE 2,400 MG/30 ML CUP PO PRN (10:10)
[2023-06-23] MEDS ORDERED: ONDANSETRON 4 MG/2 ML VIAL IVP PRN (10:10)
[2023-06-23] MEDS ORDERED: HYDROcodone/APAP 10-325MG 1 EACH TAB PO PRN (10:10)
[2023-06-23 10:12] LABS: Glucose,Whole Blood 244 mg/dL (70-110)
[2023-06-23] MEDS: HYDROmorphone 0.5 MG/0.5 ML SYRINGE IVP PRN ×3 (10:23→16:52)
[2023-06-23] MEDS ORDERED: HYDROmorphone 0.5 MG/0.5 ML SYRINGE IVP ONE (10:45)
[2023-06-23] MEDS ORDERED: METOPROLOL TARTRATE 5 MG/5 ML VIAL IVP ONE (11:31)
[2023-06-23] MEDS ORDERED: LACTATED RINGERS 1,000 ML IV ONE (11:34)
[2023-06-23] MEDS ORDERED: hydrALAZINE HCL 20 MG/ML 1 ML VIAL IV ONE (11:48)
--- NOTE | 2023-06-23 12:50 | P.OP ---
Date of Procedure: 06/23/23 Preoperative Diagnosis: 1. 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 NECK PAIN C5-T1 3. CERVICOTHORACIC DEFORMITY 4. UE WEAKNESS Postoperative Diagnosis: 1. 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 NECK PAIN C5-T1 3. CERVICOTHORACIC DEFORMITY 4. UE WEAKNESS Procedure(s) Performed: 1. C5-T1 DECOMPRESSION AND POSTERIOLATERAL FUSION (04034, [id number]) 2. INSTRUMENTATION C5-T1 (52373) 3. DECOMPRESSIVE LAMINECTOMY C5-T1 BILATERAL WITH FORAMINOTOMY COMPLETE C6-7 RIGHT AND PARTIAL C5-T1 REMAINEDER. USE OF IONM Implants: -[employer] POSTERIOR CERV[employer] SYSTEM -MAGNATOS Anesthesia: GETA Surgeon: Edward Lofton Reuse Technician #1: David Bill (RADHA Prieto Was present and assisted with all aspects of the case from positioning to dressing placement) Estimated Blood Loss (ml): 100 IV fluids (ml): 1,100 Urine output (ml): 250 Pathology: none sent Condition: stable Disposition: PACU Indications for Procedure: Ms. Han is presenting for evaluation of neck and right upper extremity pain, right upper extremity numbness and tingling. It was my pleasure to have seen and examined Ms. Han. In our visit today we have had a chance to go over subjective complaints, physical examination findings and treatments including the natural course history without intervention and various interventional options. The patients imaging demonstrates: [facility]Spine: C5-C7 large osteophyte calcification along with recurrent disc herniation along the right subarticular right central region which causes moderate to severe neural foraminal as well as central stenosis. Postsurgical changes noted anteriorly. No fracture no lesion On physical exam, Ms. Han demonstrates: recurrent continued bilateral upper extremity paresthesias with radiculopathy as well as weakness. Increasing symptomology with neck pain. I have explained to the patient that as their condition progresses it will cause further neurological deficits and eventual paralysis. Based on the patients imaging, physical exam, and the rapid progression and disabling nature of their symptoms, at this time I recommend surgery in the form of a: C5-T1 posterior decompression and fusion. I discussed the risk and benefits of this procedure at length with Ms. Han. The patient agreed to considered pursuing the procedure above mentioned. Prior to surgery, she should follow up with her PCP (Cardio, ID, IM etc) for clearance. Questions were invited and answered, and the patient wishes to proceed as outlined below. Currently, I am recommendin.C5-T1 posterior decompression and fusion Description of Procedure: C5-T1 decompression and fusion The patient was seen and examined in the preoperative area. All preoperative protocols were followed. Informed consent was obtained, risks and benefits of the procedure were discussed at length. Risks including bleeding infection damage to the surrounding tissue and risk of reoperation were discussed with the patient. Risk of anesthesia up to and including was discussed with the patient. These are outlined in the risk review. They were willing to accept these risks and all of the risks of surgery. The patient was given a weight- based dose of antibiotics in the form of 2 g Ancef. The patient was seen and evaluated by the anesthesia team who deemed them fit for surgery. The site was marked, the patient was willing to proceed with the procedure. The patient was transferred to the operative suite by the Department of anesthesia. They were then drifted off to sleep by the department anesthesia and GETA was performed. The patient tolerated this well. pre-positioning motors were obtained.Rockwell in place from the floor. Once confirmation of lines and ventilation Parisi head clamp was placed on the patient and secured and the patient was transferred to a [prone Sami table very carefully] with the Parisi head of strategy the head was secured and placed into an optimal position x- ray confirmed this position. Post-positioning motors remained stable. All bony prominences including wrists, elbows, axilla, chest, hips, and thighs, and feet were padded very well. Special attention was paid to the genitalia and these were padded accordingly. SCDs were placed on bilateral lower extremities and were connected. Arms were well padded and placed tucked at his side thumbs down. Shoulders were gently taped down to the table.. Once in position, again we confirmed good ventilation capabilities and that lines were running appropriately. The patient's posterior cervical spine was then exposed. 1010s were placed outlining the incision site. Standard alcohol was used to clean the incision site and allowed to dry. C-arm was used to biomark the patient and confirm level for incision which was marked with a skin marker. Operative briefing was performed with all teams and everyone in agreement to proceed. The patient was then prepped and draped in a normal sterile fashion. Timeout was then performed and all parties were in agreement with the procedure to be performed. Midline skin incision made over the previously bio-marked area and dissection taken down midline to the SP of C5-T1. Subperiosteal dissection taken out over the lamina and lateral masses of C5-C7 and TVP of T1 . Once exposure complete, the wound was irrigated and the C-arm brought in for imaging. We then proceeded to the T1 and T2 screws bilaterally; a sid was used to remove the facet joint of C7 and to create a starting point for T1 and T2. Pedicle finder was then passed into T1 and imaging taken to confirm placement this was then removed and a tap placed ball-tipped probe was then placed and 4 mead of pedicle fell with good bottom. Screw was then measured and placed intoT1 and T2. This is repeated on the contralateral side. The wound was then irrigated. Lateral mass screws were then drilled to 12 mm and placed at each level. Each had a good bite. Rods were then sized and selected and cut to length. They were bent accordingly and lordosis. There is secured into C5 bilaterally and then sequentially her diet reduced into T1-. All set screws were placed and were then final tightened and the position. Laminectomy was then performed using Ronjair followed by sid bilateral laminotomies and laminectomy was performed using high-speed bur Kerrison Rongeur and up-biting curette. Motors were run before and after decompression and they remain stable. Good pulsations of the cord were noted after decompression. The wound was then copiously irrigated with 3 L of Ancef irrigation followed by 3 L of gentamicin irrigation followed by 3 L of normal sterile saline. Facet joints were drilled at each level to allow for fusion Surgicel was placed over the dura. MagnetOs were placed in the posterior lateral gutters along with Lydia and DBM. This was impacted into position for fusion. 2 g of powdered bank was not placed deep within the wound and a deep drain was placed. A cross-link was placed and final tightened. We then proceeded with layered closure first in the deep fascia with #1 PDS then in the middle fascia with 0 Vicryl superficial fascia was closed with 2-0 Vicryl and skin closed with skin claudia. The wound edges approximated very well. The wound was then cleaned and dressed sterilely with an operative foam dressing 4 x 4 and Tegaderm. The drain had good suction. The patient was placed in a hard cervical collar. The patient was transferred back to their hospital bed atraumatically. Parisi head clamp was removed and pin sites were clear. Drain continued to hold suction. Patient was then awakened and extubated by the department of anes thesia having tolerated the procedure very well with no complications. They were transferred to the postoperative care unit in stable condition.
[2023-06-23] MEDS: ACETAMINOPHEN TAB 325 MG TAB PO SCH ×3 (13:09→17:23)
[2023-06-23] MEDS: HYDROmorphone 1 MG/ML 1 ML SYRINGE IVP PRN ×2 (14:30→21:46)
[2023-06-23] MEDS ORDERED: METOCLOPRAMIDE 5 MG/ML 2 ML VIAL IVP PRN (14:50)
--- NOTE | 2023-06-23 16:50 | CT ---
EXAMINATION TYPE: CT cervical spine wo con CT DLP: 484.9 mGycm, Automated exposure control for dose reduction was used. DATE OF EXAM: 06/23/2023 4:28 PM COMPARISON: CT cervical spine 02/14/2023, cervical spine radiograph 06/23/2023 CLINICAL INDICATION:Female, 53 years old with history of s/p posterior cervical fusion; PHH, s/p post erior cervical fusion TECHNIQUE: Axial CT images from the skull base to the inferior aspect of T2 we obtained without intra venous contrast. Coronal and sagittal reformatted images were also reviewed. FINDINGS: Fracture: None. Osseous structures: Postsurgical changes from anterior and posterior cervical fusion. The posterior f usion changes are new. Anterior cervical fusion encompasses C5-C7 with disc fusion cages. Posterior f usion encompasses C5-T1 with laminectomy changes. Hardware appears intact with appropriate alignment. Prominent anterior osteophyte at C4-C5. Vertebral alignment: Within normal limits. Spinal canal/Neural Foramina: No significant central canal stenosis. No evidence for significant neur al foraminal stenosis. Neck soft tissues: Prevertebral soft tissues are within normal limits. Midline posterior skin claudia and soft tissue gas with edema identified with surgical drain identified terminating at C5 on the ri ght. Other: The airway is patent. The lung apices are clear. IMPRESSION: Postsurgical changes from anterior and posterior cervical fusion. The posterior fusion changes are ne w from prior CT. No complication identified.
[2023-06-23] MEDS: RIVAROXABAN 20 MG TAB PO SCH (17:39)
[2023-06-23] MEDS: SENNOSIDES-DOCUSATE SODIUM 1 EACH TAB PO SCH (17:39)
[2023-06-23] MEDS ORDERED: hydrALAZINE HCL 20 MG/ML 1 ML VIAL IVP PRN (21:06)
[2023-06-23 21:27] LABS: Glucose,Whole Blood 295 mg/dL (70-110)
[2023-06-23] MEDS: BUMETANIDE 1 MG TAB PO SCH (21:42)
[2023-06-23] MEDS: ATORVASTATIN 80 MG TAB PO SCH (21:43)
[2023-06-23] MEDS: MECLIZINE 25 MG TAB PO SCH (21:43)
[2023-06-23] MEDS: GABAPENTIN 100 MG CAP PO SCH (21:43)
[2023-06-23] MEDS: lisinopriL 20 MG TAB PO SCH (21:43)
[2023-06-23] MEDS: INSULIN ASPART (NovoLOG) 100 UNIT/ML VIAL SQ SCH (21:44)
[2023-06-24] MEDS: ACETAMINOPHEN TAB 325 MG TAB PO SCH ×4 (00:07→17:11)
[2023-06-24 06:00] LABS: Glucose,Whole Blood 195 mg/dL (70-110)
[2023-06-24] MEDS: HYDROcodone/APAP 7.5-325MG 1 EACH TAB PO PRN (06:06)
[2023-06-24] MEDS: INSULIN ASPART (NovoLOG) 100 UNIT/ML VIAL SQ SCH ×4 (06:54→20:46)
[2023-06-24] MEDS: POTASSIUM CHLORIDE ER 20 MEQ TAB.ER PO SCH (08:06)
[2023-06-24] MEDS: CHOLECALCIFEROL 125 MCG (5000 IU) TABLET PO SCH (08:07)
[2023-06-24] MEDS: BUMETANIDE 1 MG TAB PO SCH ×2 (08:07→20:47)
[2023-06-24] MEDS: MECLIZINE 25 MG TAB PO SCH ×2 (08:07→20:47)
[2023-06-24] MEDS: GABAPENTIN 100 MG CAP PO SCH ×2 (08:07→20:47)
[2023-06-24] MEDS: lisinopriL 20 MG TAB PO SCH (08:07)
[2023-06-24] MEDS: HYDROmorphone 0.5 MG/0.5 ML SYRINGE IVP PRN (08:51)
[2023-06-24 10:59] LABS: Basophils # (A) 0.03 X 10*3/uL (0.00-0.10); Basophils % (A) 0.4 %; Eosinophils # (A) 0.07 X 10*3/uL (0.04-0.35); Eosinophils % (A) 0.8 %; HCT 39.8 % (37.2-46.3); HGB 12.8 d/dL (12.0-15.0); Lymphocytes # (A) 1.13 X 10*3/uL (0.90-5.00); Lymphocytes % (A) 13.4 %; MCH 29.7 pg (27.0-32.0); MCHC 32.2 d/dL (32.0-37.0); MCV 92.3 FL (80.0-97.0); Monocytes # (A) 0.67 X 10*3/uL (0.20-1.00); Monocytes % (A) 7.9 %; NRBC Per 100 WBC 0 X 10*3/uL (0.00-0.01); Neutrophils # (A) 6.52 X 10*3/uL (1.80-7.70); Neutrophils % (A) 77.1 %; Platelet Count 213 X 10*3/uL (140-440); RBC 4.31 X 10*6/uL (4.10-5.20); RDW 12.7 % (11.5-14.5); WBC 8.45 X 10*3/uL (4.50-10.00)
[2023-06-24 11:10] LABS: Calcium 8.7 mg/dL (8.7-10.3); Carbon Dioxide 26.9 mmol/L (21.6-31.8); Chloride 96 mmol/L (96-109); Glucose 206 mg/dL (70-110); Potassium 3.8 mmol/L (3.5-5.5); Sodium 137 mmol/L (135-145)
[2023-06-24 11:36] LABS: Glucose,Whole Blood 417 mg/dL (70-110)
--- NOTE | 2023-06-24 12:41 | P.PN ---
Subjective Progress Note Date: 06/24/23 Principal diagnosis: 1. 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 NECK PAIN C5-T1 3. CERVICOTHORACIC DEFORMITY 4. UE WEAKNESS Patient was seen at bedside this morning sitting up in chair with hard cervical collar in place. Rockwell is in place as well. Dressing is placed over posterior cervical spine. Patient says she has been up a couple times walk around the room since surgery. Patient says she is in moderate amount of pain currently. Pain medication has helped somewhat. Patient denies any other issues at this time. Patient denies chest pain, fever, shortness breath, nausea, vomiting, change in vision. Objective - Vital Signs Vital signs: Vital Signs Temp 98.1 F 06/24/23 07:09 Pulse 107 H 06/24/23 07:09 Resp 18 06/24/23 07:09 BP 162/86 06/24/23 07:09 Pulse Ox 99 06/24/23 07:09 FiO2 Intake & Output 06/23/23 06/24/23 06/24/23 18:59 06:59 18:59 Intake Total 2250 Output Total 1110 1700 150 Balance 1140 -1700 -150 Weight 101.7 kg Intake: IV 2250 Output: Drainage 150 Posterior 150 Urine 1060 1700 Estimated Blood Loss 50 Other: Voiding Method Indwelling Catheter Indwelling Catheter - Exam Patient had 150 mL output and drain overnight. We will maintain drain at this time with possible tomorrow. Dressing appears to be intact at this time. We will plan for dressing change tomorrow. Heart c-collar in place. Sensation is equal, symmetric, bilaterally intact throughout the upper and lower extremities. Fair amount of tenderness to palpation directly over incision on posterior cervical spine. Nontender to palpation throughout rest of exam. Patient does have limited range of motion in the bilateral upper extremities and shoulder forward elevation, external/internal rotation and extension secondary to referred pain from the neck in recent surgery. Patient's flange most elbows bilaterally and wrist bilaterally. 4-/5 in resisted bilateral shoulder forward elevation/external/internal rotation and extension. 4+/5 in all major motor groups of bilateral upper extremities. Negative Homans bilaterally. Negative Blaine bilaterally. Cap refill under 3 seconds in digits of upper extremities.. Radial pulse intact, 2+ bilaterally. - Labs CBC & Chem 7: 06/24/23 06:00 06/24/23 06:00 Labs: Abnormal Lab Results - Last 24 Hours (Table) 06/23/23 Range/Units 21:26 POC Glucose (mg/dL) 295 H (70-110) mg/dL Assessment and Plan Assessment: 1. 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 NECK PAIN C5-T1 3. CERVICOTHORACIC DEFORMITY 4. UE WEAKNESS Postoperative day #1 status post - C5-T1 DECOMPRESSION AND POSTERIOLATERAL FUSION Plan: 1. 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 Patient stable at bedside this morning. Hard cervical collar in place. Rockwell in place. Patient has been up a couple times walking around the room. Drain had 150 mL output overnight. We will maintain drain at this time. We will continue to fol low patient during stay in hospital 2. Appreciate medical management 3. Pain management - Bailey; gabapentin; Flexeril 4. DVT prophylaxis - Xarelto 5. GI prophylaxis - milk of magnesia; senna 6. PT/OT - weightbearing as tolerated with walker as needed. Hard c-collar on at all times. 7. Encourage incentive spirometer use 8. Discharge planning - plan for home with health services tomorrow versus Thursday. Time with Patient: Less than 30
[2023-06-24] MEDS: HYDROmorphone 1 MG/ML 1 ML SYRINGE IVP PRN ×2 (14:41→20:46)
[2023-06-24 16:29] LABS: Glucose,Whole Blood 439 mg/dL (70-110)
[2023-06-24] MEDS: RIVAROXABAN 20 MG TAB PO SCH (17:12)
[2023-06-24] MEDS: SENNOSIDES-DOCUSATE SODIUM 1 EACH TAB PO SCH (18:19)
[2023-06-24 20:11] LABS: Glucose,Whole Blood 391 mg/dL (70-110)
[2023-06-24] MEDS: ATORVASTATIN 80 MG TAB PO SCH (20:47)
[2023-06-25] MEDS: ACETAMINOPHEN TAB 325 MG TAB PO SCH ×3 (05:56→17:40)
[2023-06-25 06:38] LABS: Glucose,Whole Blood 349 mg/dL (70-110)
[2023-06-25] MEDS: INSULIN ASPART (NovoLOG) 100 UNIT/ML VIAL SQ SCH ×4 (06:42→21:47)
[2023-06-25] MEDS: MECLIZINE 25 MG TAB PO SCH ×2 (10:11→21:46)
[2023-06-25] MEDS: lisinopriL 20 MG TAB PO SCH (10:12)
[2023-06-25] MEDS: POTASSIUM CHLORIDE ER 20 MEQ TAB.ER PO SCH (10:12)
[2023-06-25] MEDS: GABAPENTIN 100 MG CAP PO SCH ×2 (10:12→21:46)
[2023-06-25] MEDS: CHOLECALCIFEROL 125 MCG (5000 IU) TABLET PO SCH (10:12)
--- NOTE | 2023-06-25 11:17 | P.DS ---
Providers Date of admission: 06/23/23 05:38 Expected date of discharge: 06/25/23 Attending physician: Edward Lofton DO Consults: 06/23/23 10:14 Consult Physician Routine Consulting Provider: Greg Ruiz Reason/Comments: medical management Do you want consulting provider notified?: Yes Primary care physician: Greg Ruiz [facility] Course: Date of admission: 06/23/2023 Date of discharge: 06/25/2023 Admission diagnosis: 1. 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 NECK PAIN C5-T1 3. CERVICOTHORACIC DEFORMITY 4. UE WEAKNESS Discharge diagnosis: Same Attending physician: Dr. Lofton Surgical procedures: C5-T1 DECOMPRESSION AND POSTERIOLATERAL FUSION Brief history: Patient is a 53-year-old female with a history of recurrent C6 to 7 herniated nucleus pulposus with severe stenosis and radiculopathy; back pain; upper extremity weakness. At this point patient has failed conservative treatment measures and has opted to proceed with a elective C5-T1 decompression and fusion. Hospital course: Details of patient's surgery can be found in operative report. Patient tolerated the procedure well and was subsequently transported to orthopedic floor. Patient's orthopeidc and medical care was provided daily. Patient had daily laboratory tests performed for evaluation of overall blood counts. Patient had daily physical therapy to include strengthening range of motion as well as education with walker ambulation. Patient was noted to have a relatively uneventful postoperative course. Patient reported satisfactory pain control with oral pain medications by postoperative day 2. Patient showed satisfactory progress with physical therapy. Patient moved steadily through the program and had no difficulty meeting the goals by postoperative day 2. Given patient's otherwise satisfactory course and having met physical therapy goals, plan is to discharge patient home on postoperative day 2. Discharge condition/disposition: Patient will be discharged home in stable condition. Discharge medications: Instructions are given on resumption of patient's normal daily medications per primary care recommendation, in addition patient will be prescribed [place]; senna; Duricef; gabapentin; Flexeril. Spine Discharge and Recovery Instructions Date of Surgery: 06/23/2023 Diagnosis: 1. 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 NECK PAIN C5-T1 3. CERVICOTHORACIC DEFORMITY 4. UE WEAKNESS Procedure: C5-T1 DECOMPRESSION AND POSTERIOLATERAL FUSION Medications: See medication list All medication refills should be obtained through your primary care doctor or your clinic spine surgeon. Please discuss prescription refills at your follow up appointment. Do not call the hospital for medication refills. Dressing: Leave your dressing in place for a total of 5 days post operatively. Then you may remove your dressing and leave open to air. Keep the area clean and if not able to keep area clean, then cover with sterile gauze and tape. Showering: You may shower 3 days after your procedure allowing soap and water to run over incision. Do not scrub. Do not soak. Blot dry. Follow up: Please confirm a follow up appointment with your surgeon 3 weeks post operatively. Please make an appointment to follow up with your PCP in 1-2 weeks after surgery for evaluation 3 phase, 3-week plan POST OP WEEKS 1-3 1. Lifting/carrying/pushing/pulling limited to less than 5 pounds. 2. Do not sit for longer than 15 minutes at one time. Get up and walk around. Prolonged sitting is NOT advised. If you lay down, see if you can tolerate laying down on you front (belly side) 3. Walk for periods of 15 minutes = 1 mile but no longer; do it multiple times times each day. 4. Ice your low back after activity. POST OP WEEKS 3-6 1. Lifting limited to less than 20 pounds. 2. Do not sit for longer than 30 minutes at a time. Frequently change positions. Use a sit-to stand workstation or take frequent breaks from sitting if you have returned to work. 3. Walk for 30 minutes each day. If possible, do these three or more times a day POST OP WEEKS 6+ At your 6-week appointment we will give you a physical therapy referral to focus on a core stabilization and strengthening program. You should also work on leg & buttock strengthening, hamstring & quadriceps stretching, and continue a low impact aerobic activity program such as swimming, walking, or riding a stationary bicycle. During the initial 6 weeks after your surgery, you are at the highest risk of re-injuring your spine. You should generally avoid BLTs (bending, lifting and twisting combination motions) and follow the above guidelines to reduce the chance of reinjury. You can anticipate post op appointments in our office at approximately 3 weeks and 6 weeks after your surgery. INCISION CARE: If your incision is not draining you do NOT need to cover it with a dressing. Keep your incision clean, dry and intact. In most cases, we apply skin glue, claudia or sutures to the incision at the time of surgery. This will be like a crust or have the appearance of a scab and will fall off in time on its own. The stitches or claudia need to be removed at 3 weeks post op appointment. You may begin to shower 3 days after surgery (this allows the glue to bella well). However, please avoid scrubbing the incision site or peeling off any of the skin glue. This will ensure optimal healing of your incision. Also, during this time avoid soaking the incision area in water - this includes swimming pools, hot tubs or baths. No ointments, lotions or oils on the incision until your surgeon allows. Leave claudia, sutures or glue in place. Neurological dysfunction that comes on suddenly can also be a sign of a stroke. Below some common symptoms of a stroke are listed: B - balance difficulty such as sudden onset walking or leaning to one side - NEW E - eye problem such as sudden double vision or trouble seeing on one side - NEW F - Facial weakness or numbness on one side - NEW A - Arm or leg weakness or numbness on one side - NEW S - Slurred speech or difficulty with word finding - NEW T - Time is BRAIN! Call 911 as soon as you recognize these symptoms Diet: Consume a regular diet rich in vegetables and lean protein such as chicken or fish. You should consume in a ratio of approximately 20% fats|40% carbohydrates|40%protein. Vegetables, sweet potatoes, brown rice or quinoa are examples of good carbohydrates. Chips, white bread, cookies and sweets/sugar are examples of bad carbohydrates. Limit your bad carbs, go wild with good carbs. "Life's Simple 7" Guidelines as per [place] [employer] These will help you reclaim your life after surgery and terrazzo polisher helper in your recovery, keeping in mind your restrictions. (1) Get Active. Physical activity can help people lose weight, control high blood pressure and cholesterol, feel emotionally better, and sleep better. (2) Control Cholesterol. Avoid a diet high in saturated fat, trans fat, & cholesterol. Limit whole milk & cream, ice cream, butter, egg yolks, processed meats (like sausage and hot dogs), and fatty meats. Choose healthy foods that are low in saturated fat, trans fat and cholesterol which include: Fruits and vegetables, fiber rich grain products (like whole grain pasta and brown rice), lean meat such as chicken, fish, nuts, seeds, and legumes. (3) Eat Better. Eat small portions. Shop at the grocery with a list and do not stray from it. Tips for a healthy diet include: Limit sodium intake to less than 1500mg daily, avoid prepackaged, processed, and fast foods, choose a diet rich in fruits, vegetables, and whole grain, high fiber foods, and limit saturated & cholesterol in your diet. (4) Manage Blood Pressure. If you have high blood pressure, you should have a cuff at home so that you can check your blood pressure regularly. Be sure you have a good cuff. An arm one is generally better than a wrist one. Bring the cuff to a doctor's appointment to validate that the measurements that your cuff are taking are accurate. Take your blood pressure twice daily when you are sitting down and relaxing. Record the numbers in a log and bring this log with you to your doctors' appointments. (5) Lose Weight if your BMI is above 25. A healthy BMI is between 19-25. To calculate Your BMI, you may use a Standard BMI Calculator on the NIH BMI website: <www.nhlbi.nih.gov/guidelines/obesity/BMI/bmicalc.htm>. Weigh oneself daily. If you are overweight, set a goal to lose weight. A pound a week loss if needed is a good target. (6) Reduce Blood Sugar. Limit foods and liquids with "added sugars." (Added sugars include sucrose, fructose, glucose, maltose, dextrose, high fructose corn syrup, corn syrup, concentrated fruit juice and honey). (7) Stop Smoking. If you smoke, quitting smoking is one of the best things that you can do for your health. Smoking increases your risk of heart attack, stroke, and peripheral vascular disease, which is a build-up of plaque in your arteries. Please discard all the cigarettes and lighters in your house. Have a plan for what you will do when you have the urge to smoke. Direct and second- hand smoke shortens your life as well as the lives of your family, friends and others around you. For your health and the health of those around you, please consider quitting! Proper Bending Body Mechanics: Maintain a wide stance with one foot slightly in front of the other. Keep your back straight. Bend utilizing the strength in your hips and knees. Do not bend at the waist. Maintain the lifted object at your waist-level close to your body. Avoid lifting weight that causes immediately pain or pain anywhere in the body afterwards. Smoking/Nicotine If there was ever one thing that you could do to increase your overall health, decrease your risk of cardiovascular problems by about 39% the second you make the choice, it is to STOP SMOKING. Your body's most instant gratification is the second you stop smoking. We have all heard the studies, read the articles but it is true, smoking is extremely bad for your overall health, and moreover it is detrimental to your bone health. Nicotine, IN ANY FORM, kills bone cells, prevents your body from healing fractures, and significantly prolongs healing after surgery. In spine surgery specifically, it increases your risk of not healing your bones to create a fusion and increases your risk of having a revision surgery due to this up to 60%. I know it is hard. I know it feels impossible. But there are ways. Take control of your life. We are here to help you through it. And when you are ready, ask us and we can direct you to help if you desire. Use the START Plan to Quit Smoking (please visit the Helpguide.org website listed below for more information): S = Set a quit date. Choose a date within the next 2 weeks, so you have enough time to prepare without losing your motivation to quit. If you mainly smoke at work, quit on the weekend, so you have a few days to adjust to the change. T = Tell family, friends, and co-workers that you plan to quit. Let your friends and family in on your plan to quit smoking and tell them you need their support and encouragement to stop. Look for a quit kevin who wants to stop smoking as well. You can help each other get through the rough times. A = Anticipate and plan for the challenges you'll face while quitting. Most people who begin smoking again do so within the first 3 months. You can help yourself make it through by preparing ahead for common challenges, such as nicotine withdrawal and cigarette cravings. R = Remove cigarettes and other tobacco products from your home, car, and work. Throw away all your cigarettes (no emergency pack!), lighters, ashtrays, and matches. Wash your clothes and freshen up anything that smells like smoke. Shampoo your car, clean your drapes and carpet, and steam your furniture. T = Talk to your doctor about getting help to quit. Your doctor can prescribe medication to help with withdrawal and suggest other alternatives. If you can't see a doctor, you can get many products over the counter at your local pharmacy or grocery store, including the nicotine patch, nicotine lozenges, and nicotine gum. Resources for Quitting Smoking: <https://www.[place].gov/documents/[facility]/Quit_Tobacco_Resources_for_patients _313480_7.pdf> Supplementation: Take recommended dosages of Vitamin D and Calcium to help fortify your bones and help them to heal. See your health maintenance packet for dosages and recomm ended levels. DVT/VTE prophylaxis: You will be given compression stockings from the hospital. Wear these daily for the first two weeks after surgery. You may take them off at night. You may be prescribed a medication to help thin your blood. Take this as directed. If you are not prescribed this medication, early and frequent ambulation has been shown to be the best prophylaxis to deep vein thrombosis and sequelae related to this event. Assessment: 1. 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 NECK PAIN C5-T1 3. CERVICOTHORACIC DEFORMITY 4. UE WEAKNESS Procedures: C5-T1 DECOMPRESSION AND POSTERIOLATERAL FUSION Patient Condition at Discharge: Good Plan - Discharge Summary Discharge Rx Participant: Yes New Discharge Prescriptions: New cefaDROXiL [Duricef] 500 mg PO Q12HR 5 Days #10 cap HYDROcodone/APAP 7.5-325MG [[place] 7.5-325] 1 tab PO Q6HR PRN #28 tab PRN Reason: Pain Sennosides/Docusate Sodium [Senna Plus 8.6-50 mg Softgel] 1 each PO DAILY #20 capsule Cyclobenzaprine [Flexeril] 5 mg PO TID #21 tablet Gabapentin 300 mg PO TID #30 cap No Action Rivaroxaban [Xarelto] 20 mg PO DAILY metFORMIN HCL [Glucophage] 1,000 mg PO BID Glimepiride [Amaryl] 4 mg PO BID Cholecalciferol [Vitamin D3 (25 Mcg = 1000 Iu)] 5,000 unit PO DAILY lisinopriL [Zestril] 20 mg PO DAILY Atorvastatin [Lipitor] 80 mg PO HS Meclizine [Antivert] 25 mg PO BID Bumetanide [BUMEX] 2 mg PO BID rOPINIRole HCL [Requip] 0.5 mg PO HS Potassium Chloride ER [K-Dur 20] 60 meq PO DAILY Discharge Medication List Rivaroxaban [Xarelto] 20 mg PO DAILY 06/10/19 [History] Glimepiride [Amaryl] 4 mg PO BID 10/05/19 [History] metFORMIN HCL [Glucophage] 1,000 mg PO BID 10/05/19 [History] Cholecalciferol [Vitamin D3 (25 Mcg = 1000 Iu)] 5,000 unit PO DAILY 10/27/19 [History] Atorvastatin [Lipitor] 80 mg PO HS 06/16/23 [History] Bumetanide [BUMEX] 2 mg PO BID 06/16/23 [History] Meclizine [Antivert] 25 mg PO BID 06/16/23 [History] Potassium Chloride ER [K-Dur 20] 60 meq PO DAILY 06/16/23 [History] lisinopriL [Zestril] 20 mg PO DAILY 06/16/23 [History] rOPINIRole HCL [Requip] 0.5 mg PO HS 06/16/23 [History] Cyclobenzaprine [Flexeril] 5 mg PO TID #21 tablet 06/25/23 [Rx] Gabapentin 300 mg PO TID #30 cap 06/25/23 [Rx] HYDROcodone/APAP 7.5-325MG [[place] 7.5-325] 1 tab PO Q6HR PRN #28 tab 06/25/23 [R x] Sennosides/Docusate Sodium [Senna Plus 8.6-50 mg Softgel] 1 each PO DAILY #20 capsule 06/25/23 [Rx] cefaDROXiL [Duricef] 500 mg PO Q12HR 5 Days #10 cap 06/25/23 [Rx] Follow up Appointment(s)/Referral(s): Greg Ruiz MD [Primary Care Provider] - 1 Week Edward Lofton DO [Doctor of Osteopathic Medicine] - 07/08/23 10:15 am Patient Instructions/Handouts: Anterior Posterior Spinal Fusion (DC) Activity/Diet/Wound Care/Special Instructions: Spine Discharge and Recovery Instructions Date of Surgery: 06/23/2023 Keep incision clean, dry, intact. Keep silver foam dressing on the incision until 06/27/2023. It is okay to remove silver foam dressing starting 06/27/2023. May shower directly over incision beginning 06/27/2023. Diagnosis: 1. 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 NECK PAIN C5-T1 3. CERVICOTHORACIC DEFORMITY 4. UE WEAKNESS Procedure: C5-T1 DECOMPRESSION AND POSTERIOLATERAL FUSION Medications: See medication list All medication refills should be obtained through your primary care doctor or your clinic spine surgeon. Please discuss prescription refills at your follow up appointment. Do not call the hospital for medication refills. Dressing: Leave your dressing in place for a total of 5 days post operatively. Then you may remove your dressing and leave open to air. Keep the area clean and if not able to keep area clean, then cover with sterile gauze and tape. Showering: You may shower 3 days after your procedure allowing soap and water to run over incision. Do not scrub. Do not soak. Blot dry. Follow up: Please confirm a follow up appointment with your surgeon 3 weeks post operatively. Please make an appointment to follow up with your PCP in 1-2 weeks after surgery for evaluation 3 phase, 3-week plan POST OP WEEKS 1-3 1. Lifting/carrying/pushing/pulling limited to less than 5 pounds. 2. Do not sit for longer than 15 minutes at one time. Get up and walk around. Prolonged sitting is NOT advised. If you lay down, see if you can tolerate laying down on you front (belly side) 3. Walk for periods of 15 minutes = 1 mile but no longer; do it multiple times times each day. 4. Ice your low back after activity. POST OP WEEKS 3-6 1. Lifting limited to less than 20 pounds. 2. Do not sit for longer than 30 minutes at a time. Frequently change positions. Use a sit-to stand workstation or take frequent breaks from sitting if you have returned to work. 3. Walk for 30 minutes each day. If possible, do these three or more times a day POST OP WEEKS 6+ At your 6-week appointment we will give you a physical therapy referral to focus on a core stabilization and strengthening program. You should also work on leg & buttock strengthening, hamstring & quadriceps stretching, and continue a low impact aerobic activity program such as swimming, walking, or riding a stationary bicycle. During the initial 6 weeks after your surgery, you are at the highest risk of re-injuring your spine. You should generally avoid BLTs (bending, lifting and twisting combination motions) and follow the above guidelines to reduce the chance of reinjury. You can anticipate post op appointments in our office at approximately 3 weeks and 6 weeks after your surgery. INCISION CARE: If your incision is not draining you do NOT need to cover it with a dressing. Keep your incision clean, dry and intact. In most cases, we apply skin glue, claudia or sutures to the incision at the time of surgery. This will be like a crust or have the appearance of a scab and will fall off in time on its own. The stitches or claudia need to be removed at 3 weeks post op appointment. You may begin to shower 3 days after surgery (this allows the glue to bella well). However, please avoid scrubbing the incision site or peeling off any of the skin glue. This will ensure optimal healing of your incision. Also, during this time avoid soaking the incision area in water - this includes swimming pools, hot tubs or baths. No ointments, lotions or oils on the incision until your surgeon allows. Leave claudia, sutures or glue in place. Neurological dysfunction that comes on suddenly can also be a sign of a stroke. Below some common symptoms of a stroke are listed: B - balance difficulty such as sudden onset walking or leaning to one side - NEW E - eye problem such as sudden double vision or trouble seeing on one side - NEW F - Facial weakness or numbness on one side - NEW A - Arm or leg weakness or numbness on one side - NEW S - Slurred speech or difficulty with word finding - NEW T - Time is BRAIN! Call 911 as soon as you recognize these symptoms Diet: Consume a regular diet rich in vegetables and lean protein such as chicken or fish. You should consume in a ratio of approximately 20% fats|40% carbohydrates|40%protein. Vegetables, sweet potatoes, brown rice or quinoa are examples of good carbohydrates. Chips, white bread, cookies and sweets/sugar are examples of bad carbohydrates. Limit your bad carbs, go wild with good carbs. "Life's Simple 7" Guidelines as per [place] [employer] These will help you reclaim your life after surgery and terrazzo polisher helper in your recovery, keeping in mind your restrictions. (1) Get Active. Physical activity can help people lose weight, control high blood pressure and cholesterol, feel emotionally better, and sleep better. (2) Control Cholesterol. Avoid a diet high in saturated fat, trans fat, & cholesterol. Limit whole milk & cream, ice cream, butter, egg yolks, processed meats (like sausage and hot dogs), and fatty meats. Choose healthy foods that are low in saturated fat, trans fat and cholesterol which include: Fruits and vegetables, fiber rich grain products (like whole grain pasta and brown rice), lean meat such as chicken, fish, nuts, seeds, and legumes. (3) Eat Better. Eat small portions. Shop at the grocery with a list and do not stray from it. Tips for a healthy diet include: Limit sodium intake to less than 1500mg daily, avoid prepackaged, processed, and fast foods, choose a diet rich in fruits, vegetables, and whole grain, high fiber foods, and limit saturated & cholesterol in your diet. (4) Manage Blood Pressure. If you have high blood pressure, you should have a cuff at home so that you can check your blood pressure regularly. Be sure you have a good cuff. An arm one is generally better than a wrist one. Bring the cuff to a doctor's appointment to validate that the measurements that your cuff are taking are accurate. Take your blood pressure twice daily when you are sitting down and relaxing. Record the numbers in a log and bring this log with you to your doctors' appointments. (5) Lose Weight if your BMI is above 25. A healthy BMI is between 19-25. To calculate Your BMI, you may use a Standard BMI Calculator on the NIH BMI website: <www.nhlbi.nih.gov/guidelines/obesity/BMI/bmicalc.htm>. Weigh oneself daily. If you are overweight, set a goal to lose weight. A pound a week loss if needed is a good target. (6) Reduce Blood Sugar. Limit foods and liquids with "added sugars." (Added sugars include sucrose, fructose, glucose, maltose, dextrose, high fructose corn syrup, corn syrup, concentrated fruit juice and honey). (7) Stop Smoking. If you smoke, quitting smoking is one of the best things that you can do for your health. Smoking increases your risk of heart attack, stroke, and peripheral vascular disease, which is a build-up of plaque in your arteries. Please discard all the cigarettes and lighters in your house. Have a plan for what you will do when you have the urge to smoke. Direct and second- hand smoke shortens your life as well as the lives of your family, friends and others around you. For your health and the health of those around you, please consider quitting! Proper Bending Body Mechanics: Maintain a wide stance with one foot slightly in front of the other. Keep your back straight. Bend utilizing the strength in your hips and knees. Do not bend at the waist. Maintain the lifted object at your waist-level close to your body. Avoid lifting weight that causes immediately pain or pain anywhere in the body afterwards. Smoking/Nicotine If there was ever one thing that you could do to increase your overall health, decrease your risk of cardiovascular problems by about 39% the second you make the choice, it is to STOP SMOKING. Your body's most instant gratification is the second you stop smoking. We have all heard the studies, read the articles but it is true, smoking is extremely bad for your overall health, and moreover it is detrimental to your bone health. Nicotine, IN ANY FORM, kills bone cells, prevents your body from healing fractures, and significantly prolongs healing after surgery. In spine surgery specifically, it increases your risk of not healing your bones to create a fusion and increases your risk of having a revision surgery due to this up to 60%. I know it is hard. I know it feels impossible. But there are ways. Take control of your life. We are here to help you through it. And when you are ready, ask us and we can direct you to help if you desire. Use the START Plan to Quit Smoking (please visit the [employer]org website listed below for more information): S = Set a quit date. Choose a date within the next 2 weeks, so you have enough time to prepare without losing your motivation to quit. If you mainly smoke at work, quit on the weekend, so you have a few days to adjust to the change. T = Tell family, friends, and co-workers that you plan to quit. Let your friends and family in on your plan to quit smoking and tell them you need their support and encouragement to stop. Look for a quit kevin who wants to stop smoking as well. You can help each other get through the rough times. A = Anticipate and plan for the challenges you'll face while quitting. Most people who begin smoking again do so within the first 3 months. You can help yourself make it through by preparing ahead for common challenges, such as nicotine withdrawal and cigarette cravings. R = Remove cigarettes and other tobacco products from your home, car, and work. Throw away all your cigarettes (no emergency pack!), lighters, ashtrays, and matches. Wash your clothes and freshen up anything that smells like smoke. Shampoo your car, clean your drapes and carpet, and steam your furniture. T = Talk to your doctor about getting help to quit. Your doctor can prescribe medication to help with withdrawal and suggest other alternatives. If you can't see a doctor, you can get many products over the counter at your local pharmacy or grocery store, including the nicotine patch, nicotine lozenges, and nicotine gum. Resources for Quitting Smoking: <https://www.[place].gov/documents/[facility]/Quit_Tobacco_Res ources_for_patients_313480_7.pdf> Supplementation: Take recommended dosages of Vitamin D and Calcium to help fortify your bones and help them to heal. See your health maintenance packet for dosages and recommended levels. DVT/VTE prophylaxis: You will be given compression stockings from the hospital. Wear these daily for the first two weeks after surgery. You may take them off at night. You may be prescribed a medication to help thin your blood. Take this as directed. If you are not prescribed this medication, early and frequent ambulation has been shown to be the best prophylaxis to deep vein thrombosis and sequelae related to this event. Discharge Disposition: HOME SELF-CARE
--- NOTE | 2023-06-25 11:22 | P.PN ---
Subjective Progress Note Date: 06/25/23 Principal diagnosis: 1. 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 NECK PAIN C5-T1 3. CERVICOTHORACIC DEFORMITY 4. UE WEAKNESS Patient was seen at bedside this morning lying in the semirecumbent position with hard cervical collar in place. Patient says she has not urinated yet this morning. She says Rockwell was removed overnight. Patient is hoping to go home later today. Patient denies any other issues at this time. Patient says she has been up walking several times since surgery. Patient denies chest pain, fever, shortness of breath, nausea, vomiting, change in vision, loss of bowel/bladder control. Objective - Vital Signs Vital signs: Vital Signs Temp 98.0 F 06/25/23 07:15 Pulse 106 H 06/25/23 07:15 Resp 19 06/25/23 07:15 BP 153/80 06/25/23 07:15 Pulse Ox 93 L 06/25/23 07:15 FiO2 Intake & Output 06/24/23 06/25/23 06/25/23 18:59 06:59 18:59 Intake Total 50 Output Total 2590 175 Balance -2540 -175 Intake: Intake, IV Titration 50 Amount ceFAZolin 2 gm In Sodium 50 Chloride 0.9% 50 ml @ 100 mls/hr IVPB Q8HR [facility] Rx# :[id number] Output: Drainage 190 25 Posterior 190 25 Urine 2400 150 Uretheral (Rockwell) 150 Other: Voiding Method Indwelling Catheter Indwelling Catheter - Exam Patient had 40-50 cc serous segments output injuring overnight. Drain was removed at bedside this morning. Dressing was removed at bedside this morning. Rina appear to be healing well. They are outlined. New sore foam dressing was placed over incision. Hard cervical collar is in place. Sensation is equal, symmetric, bilaterally intact throughout the upper and lower extremities. Fair amount of tenderness to palpation directly over incision on posterior cervical spine. Nontender to palpation throughout rest of exam. Patient does have limited range of motion in the bilateral upper extremities and shoulder forward elevation, external/internal rotation and extension secondary to referred pain from the neck in recent surgery. Patient's flange most elbows bilaterally and wrist bilaterally. 4-/5 in resisted bilateral shoulder forward elevation/external/internal rotation and extension. 4+/5 in all major motor groups of bilateral upper extremities. Negative Homans bilaterally. Negative Blaine bilaterally. Cap refill under 3 seconds in digits of upper extremities.. Radial pulse intact, 2+ bilaterally. - Labs CBC & Chem 7: 06/24/23 06:00 06/24/23 06:00 Labs: Abnormal Lab Results - Last 24 Hours (Table) 06/24/23 06/24/23 06/24/23 Range/Units 06:00 11:35 16:28 Anion Gap 14.10 H (4.00-12.00) mmol/L Est GFR (CKD-EPI) 55 L (>=60) Glucose 206 H (70-110) mg/dL POC Glucose (mg/dL) 417 H 439 H (70-110) mg/dL 06/24/23 06/25/23 Range/Units 20:09 06:36 Anion Gap (4.00-12.00) mmol/L Est GFR (CKD-EPI) (>=60) Glucose (70-110) mg/dL POC Glucose (mg/dL) 391 H 349 H (70-110) mg/dL Assessment and Plan Assessment: 1. 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 NECK PAIN C5-T1 3. CERVICOTHORACIC DEFORMITY 4. UE WEAKNESS Postoperative day #2 status post - C5-T1 DECOMPRESSION AND POSTERIOLATERAL FUSION Plan: 1. 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 Patient stable at bedside this morning. Hard cervical collar in place. Rockwell was removed overnight. Drain was removed at bedside. New dressing was placed over incision. Patient has been up walking several times around the room. Discharge home today. 2. Appreciate medical management 3. Pain management - [place]; gabapentin; Flexeril 4. DVT prophylaxis - Xarelto 5. GI prophylaxis - milk of magnesia; senna 6. PT/OT - weightbearing as tolerated with walker as needed. Hard c-collar on at all times. 7. Encourage incentive spirometer use 8. Discharge planning - discharge home today Time with Patient: Less than 30
[2023-06-25 11:51] LABS: Glucose,Whole Blood 446 mg/dL (70-110)
[2023-06-25] MEDS: LACTATED RINGERS 1,000 ML IV SCH (11:59)
[2023-06-25] MEDS: INSULIN DETEMIR (LEVEMIR) 100 UNIT/ML SYR SQ SCH (13:44)
[2023-06-25 16:38] LABS: Glucose,Whole Blood 262 mg/dL (70-110)
[2023-06-25] MEDS: RIVAROXABAN 20 MG TAB PO SCH (17:40)
[2023-06-25] MEDS: SENNOSIDES-DOCUSATE SODIUM 1 EACH TAB PO SCH (18:16)
[2023-06-25 19:58] VITALS: RESP 16
[2023-06-25] MEDS: CYCLOBENZAPRINE 5 MG TAB PO PRN (19:58)
[2023-06-25] MEDS: HYDROcodone/APAP 7.5-325MG 1 EACH TAB PO PRN (19:58)
[2023-06-25] MEDS: IPRATROPIUM-ALBUTEROL 3 ML NEB INHALATION SCH (20:04)
[2023-06-25 21:42] LABS: Glucose,Whole Blood 359 mg/dL (70-110)
[2023-06-25] MEDS: ATORVASTATIN 80 MG TAB PO SCH (22:29)
--- NOTE | 2023-06-25 23:02 | PN ---
PROGRESS NOTE DATE OF SERVICE: 06/24/2023 SUBJECTIVE: This is a 53-year-old white female, status post cervical surgeries, day 2 sugars are elevated, we are going to possibly increase her insulin if it does not come down. We will start low long-acting insulin. Pain is like 10% to 20% better than yesterday. OBJECTIVE: CARDIOVASCULAR: S1, S2. LUNGS: Scattered rhonchi and wheeze. GI: Soft. VITAL SIGNS: Blood pressure 150s/80s, O2 93 to 96 on room air, pulse 104 to 106, temp 98. PSYCH: Fair mood and affect. Normal. NEUROLOGIC: Cranial nerves are intact for neuro exam. EXTREMITIES: 2+ edema. INTEGUMENT: No rashes. Continue status post surgery, hypertension, mild tachycardia, restarted beta blockers to lower the heart rate and give her some breathing treatments for pain control. Monitor sugars, give her long-acting 20 units today. Prognosis guarded. MMODL / IJN: [id number] /
--- NOTE | 2023-06-25 23:02 | CONS ---
CONSULTATION HISTORY OF PRESENT ILLNESS: She is status post cervical repair with a fusion, medical consult. She is diabetic, COPD, CHF, history of PEs. Home insulin restarted after surgery. Her main complaint is pain. She is having no trouble breathing. FAMILY HISTORY: Mother, heart disease, kidney disease. SOCIAL HISTORY: Does not smoke or drink alcohol. HOME MEDICINES: 1. Bumetanide 2 mg daily. 2. Glimepiride 4 mg daily. 3. Meclizine 25 daily. 4. Metformin 1000 daily. 5. Ropinirole 0.5 t.i.d. 6. 20 daily. PHYSICAL EXAMINATION: NECK: She has neck collar on. GENERAL: She is kind of groggy, no acute distress. She is sitting up at 45 degrees. CARDIOVASCULAR: S1, S2. LUNGS: Clear. ABDOMEN: Soft. HEMATOLOGY: Negative for Homans. PSYCH: Fair mood and affect, is fatigued. INTEGUMENT: No rashes. REVIEW OF SYSTEMS: A 14-point review of systems otherwise negative. ASSESSMENT: Status post cervical fusion, diabetes, hypertension, diastolic heart failure, history of PE. Prognosis guarded. Home medications been reordered. Monitor sugars. Suspect high sugars after surgery. Continue diabetic, started on some insulin and watch for overnight. Pain control. MMODL / IJN: [id number] /
[2023-06-26] MEDS: HYDROcodone/APAP 7.5-325MG 1 EACH TAB PO PRN ×3 (00:36→11:06)
[2023-06-26] MEDS: ACETAMINOPHEN TAB 325 MG TAB PO SCH ×2 (00:38→06:37)
[2023-06-26 06:32] LABS: Glucose,Whole Blood 221 mg/dL (70-110)
[2023-06-26] MEDS: CYCLOBENZAPRINE 5 MG TAB PO PRN (06:40)
[2023-06-26] MEDS: INSULIN ASPART (NovoLOG) 100 UNIT/ML VIAL SQ SCH (06:40)
[2023-06-26] MEDS: INSULIN DETEMIR (LEVEMIR) 100 UNIT/ML SYR SQ SCH (06:40)
[2023-06-26] MEDS: lisinopriL 20 MG TAB PO SCH (07:57)
[2023-06-26] MEDS: GABAPENTIN 100 MG CAP PO SCH (07:57)
[2023-06-26] MEDS: MECLIZINE 25 MG TAB PO SCH (07:57)
[2023-06-26] MEDS: POTASSIUM CHLORIDE ER 20 MEQ TAB.ER PO SCH (07:57)
[2023-06-26] MEDS: CHOLECALCIFEROL 125 MCG (5000 IU) TABLET PO SCH (07:57)
[2023-06-26] MEDS: IPRATROPIUM-ALBUTEROL 3 ML NEB INHALATION SCH (08:16)
[2023-06-26 08:49] VITALS: BP 168/95; PULSE 107; TEMP 98.2
--- NOTE | 2023-06-26 09:18 | P.PN ---
Subjective Progress Note Date: 06/26/23 Principal diagnosis: 1. 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 NECK PAIN C5-T1 3. CERVICOTHORACIC DEFORMITY 4. UE WEAKNESS Patient was seen at bedside this morning lying in semirecumbent position with hard cervical collar in place. Patient says she is doing much better today than she was yesterday morning. Patient says she has urinated several times since Rockwell was removed. Patient says she did have a bowel movement last night. Patient says she is looking forward to going home later today. Patient denies any other issues at this time. Patient denies chest pain, fever, shortness breath, nausea, I can't change in vision, loss of bowel/bladder control. Objective - Vital Signs Vital signs: Vital Signs Temp 98.2 F 06/26/23 07:39 Pulse 104 H 06/26/23 08:30 Resp 16 06/26/23 07:39 BP 168/95 06/26/23 07:39 Pulse Ox 93 L 06/26/23 07:39 FiO2 Intake & Output 06/25/23 06/26/23 06/26/23 18:59 06:59 18:59 Output Total 100 Balance -100 Output: Urine 100 Other: Voiding Method Indwelling Catheter Toilet # Voids 1 4 - Exam Hard cervical collar is in place. Surgical dressing present over incision. Incision appears to be healing well at this time. Sensation is equal, symmetric, bilaterally intact throughout the upper and lower extremities. Fair amount of tenderness to palpation directly over incision on posterior cervical spine. Nontender to palpation throughout rest of exam. Patient does have limited range of motion in the bilateral upper extremities and shoulder forward elevation, external/internal rotation and extension secondary to referred pain from the neck in recent surgery. Patient's flange most elbows bilaterally and wrist bilaterally. 4-/5 in resisted bilateral shoulder forward elevation/external/internal rotation and extension. 4+/5 in all major motor groups of bilateral upper extremities. Negative Homans bilaterally. Negative Blaine bilaterally. Cap refill under 3 seconds in digits of upper extremities.. Radial pulse intact, 2+ bilaterally. - Labs CBC & Chem 7: 06/24/23 06:00 06/24/23 06:00 Labs: Abnormal Lab Results - Last 24 Hours (Table) 06/25/23 06/25/23 06/25/23 Range/Units 11:50 16:36 21:40 POC Glucose (mg/dL) 446 H 262 H 359 H (70-110) mg/dL 06/26/23 Range/Units 06:31 POC Glucose (mg/dL) 221 H (70-110) mg/dL Assessment and Plan Assessment: 1. 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 NECK PAIN C5-T1 3. CERVICOTHORACIC DEFORMITY 4. UE WEAKNESS Postoperative day #3 status post - C5-T1 DECOMPRESSION AND POSTERIOLATERAL FUSION Plan: 1. 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 Patient stable at bedside this morning. Hard cervical collar in place. Patient has urinated daily and did have a bowel movement yesterday. I did contact Dr. Ruiz this morning and he is okay with sending patient home today. Discharge home today. 2. Appreciate medical management 3. Pain management - [place]; gabapentin; Flexeril 4. DVT prophylaxis - Xarelto 5. GI prophylaxis - milk of magnesia; senna 6. PT/OT - weightbearing as tolerated with walker as needed. Hard c-collar on at all times. 7. Encourage incentive spirometer use 8. Discharge planning - discharge home today Time with Patient: Less than 30
== END 2023-06-26 11:38 | disposition home or self-care (01) | DRG 321 ==
LOC: 2ORMAIN 05:38 → 4SSUR 12:15
PROVIDERS: ADMIT Orthopaedic Surgery; ATTEND Orthopaedic Surgery
PROC: 01N10ZZ Release Cervical Nerve, Open Approach (ICD-10-PCS; 2023-06-23)
PROC: 0RG20AJ Fusion of 2 or more Cervical Vertebral Joints with Interbody Fusion Device, Posterior Approach, Anterior Column, Open Approach (ICD-10-PCS; 2023-06-23)
PROC: 0RG40AJ Fusion of Cervicothoracic Vertebral Joint with Interbody Fusion Device, Posterior Approach, Anterior Column, Open Approach (ICD-10-PCS; 2023-06-23)
PROC: 0RG4071 Fusion of Cervicothoracic Vertebral Joint with Autologous Tissue Substitute, Posterior Approach, Posterior Column, Open Approach (ICD-10-PCS; 2023-06-23)
PROC: 01N80ZZ Release Thoracic Nerve, Open Approach (ICD-10-PCS; 2023-06-23)
PROC: 0RG2071 Fusion of 2 or more Cervical Vertebral Joints with Autologous Tissue Substitute, Posterior Approach, Posterior Column, Open Approach (ICD-10-PCS; principal; 2023-06-23 07:30)
DX: M50.123 Cervical disc disorder at C6-C7 level with radiculopathy (principal); I50.32 Chronic diastolic (congestive) heart failure; I11.0 Hypertensive heart disease with heart failure; G25.81 Restless legs syndrome; E11.9 Type 2 diabetes mellitus without complications; J44.9 Chronic obstructive pulmonary disease, unspecified; G35 Multiple sclerosis; M48.02 Spinal stenosis, cervical region; M43.8X3 Other specified deforming dorsopathies, cervicothoracic region; E78.5 Hyperlipidemia, unspecified; G47.9 Sleep disorder, unspecified; K21.9 Gastro-esophageal reflux disease without esophagitis; M25.78 Osteophyte, vertebrae; Z98.1 Arthrodesis status; Z86.711 Personal history of pulmonary embolism; Z79.899 Other long term (current) drug therapy; Z79.84 Long term (current) use of oral hypoglycemic drugs; Z86.718 Personal history of other venous thrombosis and embolism; Z79.01 Long term (current) use of anticoagulants; Z28.310 Unvaccinated for COVID-19; Z86.73 Personal history of transient ischemic attack (TIA), and cerebral infarction without residual deficits
CPT/HCPCS: 72040; 72125; 80048; 81025; 85025; 94640

== ENCOUNTER → 2024-08-10 | Outpatient (CLI) | payer OTHER ==
--- NOTE | 2024-08-10 08:18 | CT ---
EXAMINATION TYPE: CT cervical spine wo con DATE OF EXAM: 08/10/2024 7:05 AM COMPARISON: 06/23/2023. CLINICAL INDICATION: Female, 54 years old with history of Z48.810 POST SURGICAL M54.2 CERVICALGIA; ce rvical spine pain TECHNIQUE: Axial CT images from the skull base to the inferior aspect of T2 we obtained without intra venous contrast. Coronal and sagittal reformatted images were also reviewed. Contrast used: mL of , (if blank None) Oral contrast used: (if blank None) CT DLP: 619 mGycm, Automated exposure control for dose reduction was used. FINDINGS: Fracture: None. Osseous structures: Postsurgical changes to the spine with fixation hardware anteriorly C5-C6 and C7. Hardware appears intact. Posterior fixation changes at C5-C6 and T1. Hardware appears intact. Hardwa re not significantly changed in position from immediate postop on 06/23/2024. No organizing fluid col lection identified in the posterior surgical bed or anterior surgical beds. Mild multilevel degenerat ion changes of the spine with osteophyte formation and facet joint arthropathy. Vertebral alignment: Alignment within normal limits. Spinal canal/Neural Foramina: No evidence of significant spinal canal narrowing. No evidence for sign ificant neural foraminal stenosis. Neck soft tissues: Prevertebral soft tissues are within normal limits. Other: The airway is patent. The lung apices are clear. IMPRESSION: 1. No evidence of cervical spine fracture. 2. Postsurgical changes without evidence for hardware failure. No organizing fluid collection. No christian dence of fracture. [facility], , 08/10/2024 8:16 AM
--- NOTE | 2024-08-10 10:25 | MR ---
EXAMINATION TYPE: MR cervical spine wo con DATE OF EXAM: 08/10/2024 6:46 AM COMPARISON: None. CLINICAL INDICATION: Female, 54 years old with history of Z48.810 POST SURGICAL M54.2 CERVICALGIA, Ne ck pain into mitul upper extremities TECHNIQUE: Multiplanar multiecho imaging on a 3.0 Sulema magnet is performed through the cervical spin e. IV Contrast: mL (None, if empty) FINDINGS: The craniovertebral junction is normal. Vertebral body alignment is normal. Posterior fi xation is present in the lower cervical spine C5-T1. C7-T1: No focal disc herniation or significant disc bulge is evident. No spinal canal stenosis or n eural foraminal stenosis is present. C6-7: There is a large right paracentral to right lateral spur moderate anterior thecal sac compressi on and cord contact. Mild cord deformity is present. There is likely displacement of the exiting nerv e root within foramen. Correlate with radicular symptoms. Finding was present previously and appears stable. C5-6: No focal disc herniation or significant disc bulge is evident. No spinal canal stenosis or richi ral foraminal stenosis is present. C4-5: No focal disc herniation or significant disc bulge is evident. No spinal canal stenosis or richi ral foraminal stenosis is present. C3-4: No focal disc herniation or significant disc bulge is evident. No spinal canal stenosis or richi ral foraminal stenosis is present. C2-3: No focal disc herniation or significant disc bulge is evident. No spinal canal stenosis or richi ral foraminal stenosis is present. IMPRESSION: 1. Stable large osteophyte right paracentral and right lateral direction with right foraminal stenosi s at C6-7. [facility], Workstation: [email or web address], 08/10/2024 10:23 AM
== END | disposition home or self-care (01) ==
LOC: RADMRIMAIN 06:00
PROVIDERS: ATTEND Orthopaedic Surgery
DX: Z48.810 Encounter for surgical aftercare following surgery on the sense organs (principal); M99.71 Connective tissue and disc stenosis of intervertebral foramina of cervical region; M25.78 Osteophyte, vertebrae
CPT/HCPCS: 72125; 72141

== ENCOUNTER → 2024-12-13 | Outpatient (CLI) | payer OTHER ==
--- NOTE | 2024-12-14 15:36 | MR ---
INDICATION: Patient age:Female; 54 years old; Reason for study: M54.2 CERVICAL PAIN [id number] FUSION OF SPINE; [facility]. COMPARISON: CT cervical spine 08/10/2024, 06/23/2023, 02/14/2023, MR cervical spine 08/10/2024, 3. TECHNIQUE: Multi planar, multi sequence imaging was performed of the cervical spine before and after the uneventful administration of 9 mL of Gadobutrol intravenously. FINDINGS: Alignment: The cervical vertebral bodies have preserved heights. Alignment is within normal limits gi dionne patient positioning. Bones: Post anterior cervical fusion changes involving C5-C7 with disc spacers. Additional cervical d ecompression changes with bilateral pedicular screws involving the C5, C6, and T1 levels. Laminectomy changes at C6-T1. Hardware creates susceptibility artifact which limits evaluation. No abnormal STIR signal. Large anterior osteophyte at C4-C5. No abnormal contrast enhancement. Cord: The spinal cord is unremarkable with regards to their signal intensity and morphology. No abnor mal contrast enhancement. Discs: Multilevel disc desiccation is present. C2-C3: No significant disc pathology. The spinal canal is patent. No neural foraminal stenosis. C3-C4: No significant disc pathology. The spinal canal is patent. No neural foraminal stenosis. C4-C5: No disc herniation, disc bulge or central canal stenosis. No neural foraminal stenosis. C5-C6: Postsurgical changes without central canal stenosis. No neural foraminal stenosis. C6-C7: Post surgical changes with stable large posterior right osteophyte. This extends along the rig ht paracentral/subarticular region resulting in moderate effacement of the anterior right thecal sac with impression upon the anterior right spinal cord. No spinal cord signal abnormality at this level. The left neural foramen is patent. Moderate to severe right neuroforaminal stenosis. C7-T1: Postsurgical changes. The spinal canal is patent. No neural foraminal stenosis. Other: None. IMPRESSION: 1. Similar large posterior osteophyte at C6-C7 along the right subarticular/right paracentral region . Results in mild to moderate impression upon the anterior right spinal cord. Spinal cord signal is a gain maintained. Resultant moderate to severe right neural foraminal stenosis. No other significant n eural foraminal or spinal canal stenosis. 2. Postsurgical changes of anterior cervical fusion C5-C7 and posterior cervical decompression C5-T1 redemonstrated. [facility], , 12/14/2024 3:34 PM
== END | disposition home or self-care (01) ==
LOC: RADMRIMAIN 18:44
PROVIDERS: ATTEND Orthopaedic Surgery
DX: M48.02 Spinal stenosis, cervical region (principal); M43.22 Fusion of spine, cervical region; M25.78 Osteophyte, vertebrae
CPT/HCPCS: 72156; A9585